=== PATIENT | female | born 1955 | race Caucasian/White ===

== ENCOUNTER 2019-06-23 09:00 | Outpatient (RCR) | payer MEDICARE, MEDICAID, SELFPAY ==
--- NOTE | 2019-05-12 16:32 | PTOPEVAL ---
PHYSICAL THERAPY EVALUATION AND PLAN OF CARE Thank you for referring this patient to [facility]. Cynthia will be seen in PT 2x/week for 6 weeks. Please review, sign, date and return this plan of care JUANJO. I agree with and certify that the following plan of care is medically necessary. Referring Physician Date Evaluation Outpatient Past Medical History Musculoskeletal History Hx Joint Replacement Yes: left EVERTON Evaluation Information Problem Diagnosis left hip pain Onset 06/2018 Subjective Information Cynthia has had a hip replacement Query Text:As Reported By Patient/ 04/2017. ~9 months ago she Family started to notice that the left hip/leg feels like it is sliding. She will feel popping and locking in the joint. Physician states that there could be need for a revision, but recommends PT first for strengthening of hip abductors, adducts, and glute max. Self Report Pain Assessment Left Hip(s) Reported Pain Level 4 Pain Description Aching Pain Frequency Chronic,Continuous Current Pain Intensity 4 Lowest Pain Intensity 3 Greatest Pain Intensity 8 Pain Aggravating Factors Exercise/Activity,Walking, Weight Bearing/Standing Pain Behaviors None Hip Strength Right Hip Flexion Strength 4+ Good + Hip Extension Strength 3+ Fair + Hip Abduction Strength 4 Good Hip Adduction Strength 4+ Good + Hip Medial Rotation Strength 4+ Good + Hip Lateral Rotation Strength 4+ Good + Left Hip Flexion Strength 4 Good Hip Extension Strength 3- Fair - Hip Abduction Strength 4- Good - Hip Adduction Strength 4 Good Hip Medial Rotation Strength 4 Good Hip Lateral Rotation Strength 3- Fair - Knee Strength Bilateral Knee Flexion Strength 5 Normal Knee Extension Strength 5 Normal Palpation Assessment atrophy noted over left gluteus medius and left hip deep external rotators Gait Assessment No Deviations/Normal Stair Climbing Assessment Stair Climbing Assistive Devices None Weight Bearing Status - Left Full Weight Bearing Status - Right Full Maintains Weight Bearing Status Yes Number of Steps Climbed (Steps) 4 Number of Repetitions (Repetitions) 4 Stair Climbing Comments observed left hip drop during
--- NOTE | 2019-05-15 13:49 | OTOPEVAL ---
OCCUPATIONAL THERAPY EVALUATION AND DISCHARGE SUMMARY 05/15/2019 Thank you for referring this patient to [facility]. As described below, no further skilled OT is indicated at this time. The patient's ROM, strength, and pain have remained unchanged since therapy visits from Feb through Mar 2019. Recommend that the patient follow up with orthopedic MD to discuss other treatment options for her chronic pain. Please review, sign, date and return this plan of care JUANJO. I agree with and certify that the following plan of care is medically necessary. Referring Physician Date Attending Provider: Benjamín Hanson MD *OT Outpatient Evaluation Start: 05/15/19 12:35 Freq: Status: Active Protocol: Document 05/15/19 12:35 MANSOOR (Rec: 05/15/19 13:47 MANSOOR [id number]) Therapy Assessment Status Assessment Status Assessment Status Evaluation Outpatient Past Medical History Musculoskeletal History Hx Joint Replacement Yes: left EVERTON Evaluation Information Problem Diagnosis R elbow pain Cause s/p radial head replacement Additional Evaluation Detail Patient fell and sustained a hairline fx of the proximal radius in Mar treated conservatively. In May 2018 she had a follow up xray of the elbow that showed the bone had . In August 2018 she underwent an ORIF of the elbow/radial head and the hardware failed. She underwent a second ORIF October 08, 2018. She attended therapy here at this clinic from Nov-Mar 2019. She returns today due to the chronic pain in the right elbow. 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 She reports that she does her exercises daily from her previous visit and that massage will give her some temporary relief. Previous Treatments Previous Treatments For This Problem Yes - outpatient therapy Pain Assessment Timing of Pain Assessment Timing of Pain Assessment Assessment Pain Scale Pain Scale Used Numeric (1 - 10) Self Report Pain Assessment Right Elbow(s) Reported Pain Level 6 Pain Description Aching,Dull Pain Frequency Chronic
--- NOTE | 2019-05-20 08:01 | PCPTNOTE ---
Patient called & cancelled scheduled appointment this date due to no ride
--- NOTE | 2019-06-23 10:03 | PTOPEVAL ---
PHYSICAL THERAPY DISCHARGE REPORT Thank you for referring this patient to [facility]. Cynthia no longer requires skilled PT. She is compliant and understanding of progressive and resistive HEP. Please review, sign, date and return this plan of care JUANJO. I agree with and certify that the following plan of care is medically necessary. Referring Physician Date Discharge Outpatient Past Medical History Musculoskeletal History Hx Joint Replacement Yes: left EVERTON Evaluation Information Problem Diagnosis left hip pain Subjective Information After 6 weeks of physical Query Text:As Reported By Patient/ therapy with extensive Family strength training with progressive resisance training , Cynthia continues experience the same levels of pain, same sensations of instability in left hip joint. Continues to experience episodes of left hip popping and locking and feelings of the hip shifting in the socket. Previous Treatments Previous Treatments For This Problem Yes - outpatient therapy Pain Assessment Timing of Pain Assessment Timing of Pain Assessment Pre-Treatment Pain Scale Pain Scale Used Numeric (1 - 10) Self Report Pain Assessment Left Hip(s) Reported Pain Level 5 Pain Description Aching Pain Frequency Chronic Pain Score Pain Score 5: Self Report Hip Strength Right Hip Flexion Strength 5 Normal Hip Extension Strength 4 Good Hip Abduction Strength 4+ Good + Hip Adduction Strength 5 Normal Hip Medial Rotation Strength 4+ Good + Hip Lateral Rotation Strength 5 Normal Left Hip Flexion Strength 4+ Good + Hip Extension Strength 3+ Fair + Hip Abduction Strength 4 Good Hip Adduction Strength 4+ Good + Hip Medial Rotation Strength 4 Good Hip Lateral Rotation Strength 4- Good - Knee Strength Bilateral Knee Flexion Strength 5 Normal Knee Extension Strength 5 Normal Clinical Summary Cynthia demonstrates today that she has met or nearly met her functional goals; however, there have been no changes in subjecive symptoms or pain goals. She demonstrates a significant increase in strength of left LE in all planes. Does continue to have a mild strength deficit of
== END 2019-06-23 12:13 | disposition home or self-care (01) ==
LOC: ANHPT 09:00
PROVIDERS: PCP Family Medicine
DX: M25.552 Pain in left hip (principal)
CPT/HCPCS: 97110; 97161; 97165

== ENCOUNTER 2020-09-16 17:02 | Emergency (ER) | payer MEDICARE, MEDICAID, SELFPAY ==
[2020-09-16 17:08] VITALS: BP 142/69; PULSE 100; RESP 16; TEMP 37.5; O2SAT 95
[2020-09-16 17:20] LABS: Glucose Point of Care 168 mg/dl (65-105)
[2020-09-16 17:32] LABS: Hematocrit 38.9 % (37.0-47.0); Hemoglobin 12.9 g/dL (12.0-15.0); Mean Corpuscular HGB Conc 33.2 g/dl (32-36); Mean Corpuscular Hemoglobin 31.8 pg (26-34); Mean Corpuscular Volume 95.8 fl (80-100); Mean Platelet Volume 9.3 fl (7.4-10.4); Platelet Count Result 213 k/mm3 (150-375); Red Blood Count 4.06 M/mm3 (4.2-5.4); Red Cell Distribution Width 13.9 % (11.5-14.5); White Blood Count 8.3 K/mm3 (4.5-10.0)
[2020-09-16 17:42] LABS: Alanine Aminotransferase 30 U/L (4-35); Albumin Level 4.3 g/dL (3.5-5.1); Alkaline Phosphatase 98 U/L (38-126); Anion Gap 9 mmol/L (8-16); Aspartate Amino Transferase 40 U/L (14-36); Bilirubin,Total 0.8 mg/dL (0.2-1.3); Blood Urea Nitrogen 15 mg/dL (7-17); Calcium 9.1 mg/dL (8.4-10.2); Carbon Dioxide 27 mmol/L (22-30); Chloride 101 mmol/L (98-107); Estimated CRCL calculation 91 ml/min; Estimated Glomerular Filt Rate > 60; Glucose 162 mg/dL (65-105); Lipase 119 U/L (23-300); Potassium 3.7 mmol/L (3.4-5.0); Sodium 137 mmol/L (137-145)
[2020-09-16 17:58] LABS: Band Neutrophils Percent 22 % (0-6); Monocytes Absolute Manual 0.33 K/mm3 (0.1-0.90); Monocytes Percent Manual 4 % (3-9); Neutrophils Absolute Manual 7.96 K/mm3 (1.7-7.2); Neutrophils Percent Manual 74 % (46-73); Platelet Estimate Adequate (Adequate); Total Cells Counted 100
--- NOTE | 2020-09-16 18:26 | PC.NURSE ---
PT AMBULATORY TO INTAKE DESK STATES I'VE BEEN WAITING FOR AN HOUR AND NOTHING HAS HAPPENED. PT UPDATED ON WAIT TIMES AND PLAN OF CARE, AMBULATES TO A WHEELCHAIR AND SITS DOWN.
[2020-09-16 19:11] VITALS: BP 137/72; PULSE 105; RESP 18; O2SAT 93
[2020-09-16 19:50] LABS: Add Urine Microscopic? YES; Appearance Urine Clear (Clear); Bilirubin Urine Negative (Negative); Blood Urine Negative (Negative); Color Urine Yellow (Yellow); Glucose Urine UA Negative (Negative); Ketones Urine Trace mg/dL (Negative); Leukocyte Esterase Ur Negative LEU/UL (Negative); Mucus Urine Rare /lpf; Nitrate Urine Negative (Negative); Protein Urine 2+ mg/dL (Negative); RBC Urine 0-2 /hpf (0-2); Specific Grav Ur 1.014 (1.001-1.035); Squamous Epithelial Cell Urine Rare /hpf (Few); Urobilinogen Urine Negative mg/dL (<2.0); WBC Urine 0-3 /hpf
[2020-09-16 20:01] VITALS: BP 131/73; PULSE 98; RESP 20; O2SAT 94
--- NOTE | 2020-09-16 20:20 | ED.ABDPAIN ---
HPI - Abdominal Pain General Chief Complaint: Abdominal Pain Stated Complaint: abd pain, nausea/diahrrea since this am, ams Time Seen by Provider: 09/16/20 19:05 Source: patient Mode of arrival: ambulatory Limitations: clinical condition History of Present Illness HPI narrative: 65-year-old female Somewhat of a reluctant historian but eventually can draw out a history of about a 10-12 of GI upset and lightheadedness Patient says that she went over to a friend's house who had possible food poisoning to help her out and that her word for that was to develop diarrhea today She reports having 4 large loose stools, some abdominal cramping and discomfort which is mild, nausea but no vomiting, also states that she effectively never vomits, the diarrhea is nonbloody, there is no fever She felt a little bit lightheaded earlier as though she might faint but she did not Currently is been 2 or 3 hours since she had any loose stool and in fact had a trip to the bathroom here to urinate without having any diarrhea at all Related Data Home Medications Medication Instructions Recorded Confirmed Vitamin B-12 03/31/19 08/19/20 fexofenadine 180 mg tablet 180 mg PO DAILY 08/18/19 08/19/20 tramadol 50 mg tablet mg PO Q8H PRN tablet 08/18/19 08/19/20 valacyclovir 1 gram tablet 1,000 mg PO Q8H PRN 03/31/20 08/19/20 Allergies Allergy/AdvReac Type Severity Reaction Status Date / Time acetaminophen Allergy Severe Headache Verified 08/19/20 08:25 hydrocodone Allergy Severe Headache Verified 08/19/20 08:25 oxycodone Allergy Severe Headache Verified 08/19/20 08:25 erythromycin base Allergy Intermediate hives\itchi Verified 08/19/20 08:25 ng azithromycin Allergy Unknown Unknown Verified 08/19/20 08:25 Penicillins AdvReac Intermediate Nausea Verified 08/19/20 08:25 diphenhydramine AdvReac Mild Hyperactive Verified 08/19/20 08:25 Penicillins Allergy Unknown Unknown Uncoded 08/19/20 08:25 Review of Systems Review of Systems: All systems reviewed & are unremarkable except as noted in HPI and below Constitutional: Constitutional: Reports no additional constitutional complaints, Denies chills, Reports fatigue, Denies fever(s), Denies headache(s) and Reports weakness Eyes: Eyes: Reports no additional eye complaints and Denies change in vision ENT: Denies headache(s) and Denies sore throat Cardiovascular: Cardiovascular: Denies chest pain and Denies dyspnea Respiratory: Respiratory: Denies cough and Denies dyspnea Gastrointestinal: Gastrointestinal: Reports abdominal pain, Denies bloating, Denies constipation, Reports diarrhea, Reports nausea and Reports vomiting Genitourinary: Genitourinary: Denies urinary frequency, Denies nocturia, Denies dysuria and Denies flank pain Musculoskeletal: Musculoskeletal: Denies deformity, Denies arthralgias, Denies joint swelling and Denies numbness Integumentary/Breasts: Skin/Breast: Denies rash and Denies wounds Neurologic: Denies headache(s), Denies focal weakness and Denies numbness Psychiatric: Psychiatric: Reports no additional psychiatric complaints Endocrine: Endocrine: Reports no additional endocrine complaints Hematologic/Lymphatic: Hematologic/Lymphatic: Reports no additional hematologic/lymphatic complaints Allergic/Immunologic: Allergic/Immunologic: Reports no additional allergic/immunologic complaints PMFSH Past Medical History Medical History Anxiety Arthritis Chronic back pain DJD (degenerative joint disease) Environmental allergies Hyperlipidemia Insomnia Kidney stones Perforation of bladder Post-menopausal UTI (urinary tract infection) Surgical History Surgical History History of back surgery (~2009) L3-5 surgery last surgery in 2009 History of bladder surgery (~05/2016) Sling with revision - 05/2016 History of elbow surgery 08/2018 & 10/2018 - Right elbow, Rep
[2020-09-16 20:31] VITALS: BP 108/59; PULSE 91; RESP 16; O2SAT 96
[2020-09-16] MEDS: LACTATED RINGERS 1,000 ML 999 ML IV CONT (20:35)
[2020-09-16] MEDS: ONDANSETRON INJ 4 MG/2 ML VIAL IV PUSH (20:36)
[2020-09-16] MEDS: LORazepam INJ (*CRX) 2 MG/ML VIAL 1 MG IV PUSH (20:36)
[2020-09-16 21:52] VITALS: BP 116/60; PULSE 107; RESP 22; O2SAT 96
== END 2020-09-16 22:00 | disposition home or self-care (01) ==
PROVIDERS: Family Medicine; Emergency Provider Emergency Medicine; PCP Family Medicine
DX: R19.7 Diarrhea, unspecified (principal); M19.90 Unspecified osteoarthritis, unspecified site; E78.5 Hyperlipidemia, unspecified; F41.9 Anxiety disorder, unspecified; Z87.442 Personal history of urinary calculi; Z87.440 Personal history of urinary (tract) infections; Z96.643 Presence of artificial hip joint, bilateral
CPT/HCPCS: 36415; 80053; 81001; 82948; 83690; 85025; 96361; 96374; 96375; 99284; J2060; J2405; J7120

== ENCOUNTER 2020-12-07 08:15 | Outpatient (RCR) | payer MEDICARE, MEDICAID, SELFPAY ==
--- NOTE | 2020-09-08 13:40 | PTOPEVAL ---
PHYSICAL THERAPY EVALUATION AND PLAN OF CARE Thank you for referring Cynthia Ramos to [facility].? The patient is scheduled to be seen for therapy?1x/week for 4 weeks for treatment of SIJ pain. Please review, sign, date and return this plan of care JUANJO. I agree with and certify that the following plan of care is medically necessary. Referring Physician Date Attending Provider: Topher Finney, Evaluation Outpatient Past Medical History Musculoskeletal History Hx Joint Replacement Yes: left EVERTON, right EVERTON Diagnosis sacroilitis Onset chronic Subjective Information Cynthia is here today with Query Text:As Reported By Patient/ aggravated SIJ pain. In the Family last year she has had a total hip revision on each side and between the two surgeries, her SIJ got aggravated and after the second it has started to ease. She has started to do injections that are maybe helping some, but she is not quite sure yet. Cynthia does have a history of participating in physical therapy for back pain and she continues her exercises regularly. She also gets massages when she is able to afford it. Self Report Pain Assessment Bilateral Sacrum Reported Pain Level 4 Pain Description Aching,Tightness Pain Behaviors None Interventions Used Interventions Used By Clinicians Exercise,Manual Therapy Techniques Pain Relief Interventions Used By Exercise,Heat,Medication Patient Other Alleviating Interventions massage Cervical and Lumbar ROM Lumbar ROM Lumbar Comments generally WFL lumbar ROM; lumbar extension: 0deg Lower Extremity Range of Motion General Lower Extremity Range of Motion Reason Not Measured WFL/Left,WFL/Right Lower Extremity Muscle Strength Testing Hip Strength Right Hip Flexion Strength 3+ Fair + Hip Extension Strength 3 Fair Hip Abduction Strength 3+ Fair + Hip Medial Rotation Strength 4- Good - Hip Lateral Rotation Strength 4- Good - Left Hip Flexion Strength 3 Fair Hip Extension Strength 2+ Poor + Hip Abduction Strength 3+ Fair + Hip Medial Rotation Strength 4- Good - Hip Lateral Rotation Strength 4- Good - Posture Evaluation View Posterior Head/C-Spine Posture Forward Head Thoracic Spin
--- NOTE | 2020-09-08 14:23 | OTOPEVAL ---
OCCUPATIONAL THERAPY INITIAL EVALUATION REPORT 09/08/20 Thank you for referring Cynthia Ramos to [facility].? The patient is scheduled to be seen for therapy? 1x/week for 4 weeks. Please review, sign, date and return this plan of care JUANJO. I agree with and certify that the following plan of care is medically necessary. Referring Physician Date Referring Provider: Samson Reynolds MD *OT Outpatient Evaluation Start: 09/08/20 13:33 Freq: Status: Active Protocol: Document 09/08/20 13:33 MANSOOR (Rec: 09/08/20 14:23 MANSOOR [id number]) Therapy Assessment Status Assessment Status Assessment Status Evaluation Outpatient Past Medical History Past Medical History Source of Past Medical History Recalled from Previous Visit, Confirmed with Patient/Family Neurological History Hx Neurological Disorders No Significant History Cardiovascular History Hx Cardiac Disorders No Significant History Respiratory History Hx Respiratory Disorders No Significant History Gastrointestinal History Hx Gastrointestinal Disorders No Significant History Genitourinary History Hx Kidney Stones Yes Musculoskeletal History Hx Arthritis Yes Hx Back Pain Yes: SI joint pain Hx Fractures Yes: right radial head fx w/ complications and revisions Hx Joint Replacement Yes: left EVERTON 2017 s/p left hip revision 2019; right EVERTON 2020 Hematological History Hx Hematological Disorders No Significant History Endocrine History Hx Endocrine Disorders No Significant History HEENT History Hx HEENT Disorders No Significant History Integumentary History Hx Skin Disorders No Significant History Reproductive History Hx Reproductive Disorders No Significant History Evaluation Information Problem Additional Evaluation Detail Patient sustained right radial head fracture with radial head arthroscopy 10/2018. She was seen at this clinic, but continued to have severe pain and limited functional use of the right UE. She underwent right elbow radial head removal, hardware removal, and anconeus interposition on 08/09/20. She has 1.5 lb. lifting restriction. 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
--- NOTE | 2020-10-06 08:04 | OTOPEVAL ---
OCCUPATIONAL THERAPY RE-EVALUATION AND POC UPDATE 10/06/20 Patient presents today, 8 weeks post-op of right radial head hardware removal and anconeus interposition. She has participated in 3 OT sessions focused on use of modalities and manual tx for pain and soft tissue tightness, instruction in active/passive ROM, as well as progressive strengthening. Patient is progressing well with ROM, pain reduction, and improved functional use. Continued skilled OT indicated 1x/week for an additional 3 weeks for progressive strengthening and HEP progression to facilitate optimal strength and functional use of the right UE. Thank you for referring Cynthia Ramos to [facility].? The patient is scheduled to be seen for therapy? 1x/week for 3 weeks, beginning week of 10/18/20. Please review, sign, date and return this plan of care JUANJO. I agree with and certify that the following plan of care is medically necessary. Referring Physician Date Referring Provider: Samson Reynolds *OT Outpatient Re-Evaluation Start: 09/08/20 13:33 Evaluation Information Problem Additional Evaluation Detail Patient sustained right radial head fracture with radial head arthroscopy 10/2018. She was seen at this clinic, but continued to have severe pain and limited functional use of the right UE. She underwent right elbow radial head removal, hardware removal, and anconeus interposition on 08/09/20. She now has a 10 lb. lifting restriction. She has participated in 3 OT sessions. 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 She states she is able to do these tasks now, but she continues to have pain in the elbow, however she does report that the pain is not as bad as 3 weeks ago. She also notes shoulder and upper back pain due to now overusing these muscles. With household tasks, such as cooking and cleaning, she is now able to use the right hand more for these tasks. She notes limitations with being able to lift heavier items due to weakness. Pain Assessment Timing of Pain Assessment Timing of Pain Assessment Re-assessment Pain
--- NOTE | 2020-10-06 09:19 | PTOPEVAL ---
PHYSICAL THERAPY PROGRESS REPORT AND PLAN OF CARE Thank you for referring Cynthia Ramos to [facility].? The patient is scheduled to be seen for therapy? 1x/week for 3 weeks (over the course of 4 weeks). Please review, sign, date and return this plan of care JUANJO. I agree with and certify that the following plan of care is medically necessary. Referring Physician Date Attending Provider: Topher Finney, Diagnosis sacroilitis Onset chronic Subjective Information Here today for follow-up for Query Text:As Reported By Patient/ lower back pain, sacroilitis. Family Cynthia states that last night was particularly uncomfortable and she used her massage and kept trying to stretch and could not quite find relief. Overall since start of therapy , she reports a definite improvement except for the occasional bad day. Self Report Pain Assessment Bilateral Sacrum Reported Pain Level 4 Pain Description Aching,Tightness Pain Behaviors None Pain Score Pain Score 1,4: Self Report Interventions Used Interventions Used By Clinicians Paraffin Pain Relief Interventions Used By Exercise,Heat,Medication Patient Other Alleviating Interventions massage Cervical and Lumbar ROM Lumbar ROM Lumbar Comments generally WFL lumbar ROM; lumbar extension: 5deg; extensive history of back pain , back surgeries, and scoliosis with severe kyphosis Lower Extremity Range of Motion General Lower Extremity Range of Motion Reason Not Measured WFL/Left,WFL/Right Lower Extremity Muscle Strength Testing Hip Strength Right Hip Flexion Strength 4- Good - Hip Extension Strength 3 Fair Hip Abduction Strength 4- Good - Hip Medial Rotation Strength 4 Good Hip Lateral Rotation Strength 4 Good Left Hip Flexion Strength 4- Good - Hip Extension Strength 2+ Poor + Hip Abduction Strength 4- Good - Hip Medial Rotation Strength 4 Good Hip Lateral Rotation Strength 4 Good General Exercise General Exercises Side Bilateral Exercise Location hips, low back Exercise Type Active,Respiratory Exercise Description -unilateral bridge x15 Query Text:Record Sets, Reps, -clamshells resisted Resistance, and Position -SLR x12 -unilateral lift -single leg stand PT
--- NOTE | 2020-11-02 09:45 | PTOPEVAL ---
PHYSICAL THERAPY PROGRESS REPORT AND PLAN OF CARE UPDATE Thank you for referring Cynthia Ramos to [facility].? The patient is scheduled to be seen for therapy? 2x/week for 6 weeks for treatment and strengthening of left hip s/p 1 year left EVERTON. She will be discharged for care of SIJ at this time. Please review, sign, date and return this plan of care JUANJO. I agree with and certify that the following plan of care is medically necessary. Referring Physician Date Attending Provider: Topher Finney MD Orthopedic Provider: Albert King MD Outpatient Past Medical History Past Medical History Source of Past Medical History Recalled from Previous Visit, Confirmed with Patient/Family Genitourinary History Hx Kidney Stones Yes Musculoskeletal History Hx Arthritis Yes Hx Back Pain Yes: SI joint pain Hx Fractures Yes: right radial head fx w/ complications and revisions Hx Joint Replacement Yes: left EVERTON 2018 s/p left hip revision 2019; right EVERTON 2020 Hematological History Diagnosis sacroilitis Onset chronic Subjective Information Overall her back is feeling Query Text:As Reported By Patient/ better than it was. She Family continues to have bad days where she cannot find relief. She spoke with her doctor about using her inversion table and he gave permission. We received a new order from orthopedic doctor to start physical therapy on left hip s /p 1 year left hip replacment. States that since the surgery she has always had pain in the groin of the hip and in the back of the hip. She states she also has bursitis in the left hip - going to get an injection for the bursitis. Self Report Pain Assessment Bilateral Sacrum Reported Pain Level 3 Pain Description Aching,Tightness Pain Behaviors None Pain Score Pain Score 3: Self Report Interventions Used Interventions Used By Clinicians Exercise,Manual Therapy Techniques Cervical and Lumbar ROM Lumbar ROM Lumbar Comments generally WFL lumbar ROM; lumbar extension: 10deg; extensive history of back pain , back surgeries, and
--- NOTE | 2020-11-02 10:26 | OTOPEVAL ---
OCCUPATIONAL THERAPY RE-EVALUATION REPORT AND DISCHARGE SUMMARY Cynthia presents today for her second OT re-evaluation after an addition 3 weeks of therapy (6 weeks total) for right elbow pain, ROM, and strength. Today her ROM and strength is measuring WNL. She reports no pain and rest and only slight increase in pain (2/10) with heavier ADLs. She is currently independent with all materials. No further skilled OT indicated at this time. Thank you for referring Cynthia Ramos to [facility]Note 3[facility]? Please review, sign, date and return this discharge note JUANJO. I agree with and certify that the following plan of care is medically necessary. Referring Physician Date Referring Provider: Samson Reynolds MD *OT Outpatient Re-Evaluation Additional Evaluation Detail Patient sustained right radial head fracture with radial head arthroscopy 10/2018. She was seen at this clinic, but continued to have severe pain and limited functional use of the right UE. She underwent right elbow radial head removal, hardware removal, and anconeus interposition on 08/09/20. She no longer has a weight lifting restriction and has been released by her ortho MD. Subjective Information Subjectively, patient reports Query Text:As Reported By Patient/ the elbow is so much better . Family She reports that the pain is decreased and she is able to do more with that arm. She knows when to take a rest and when she is able to push activity-posey. 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 She continues to have some proximal muscle pain due to overuse of these muscles, but she states she has been compliant with stretching as much as she can. Pain Assessment Timing of Pain Assessment Timing of Pain Assessment Re-assessment Pain Scale Pain Scale Used Numeric (1 - 10) Self Report Pain Assessment Right Elbow(s) Reported Pain Level 0 Lowest Pain Intensity 0 Greatest Pain Intensity 2 Other Pain Aggravating Factors carrying groceries, mopping the floor Pain Score Pain Score 0: Self Report Upper Extremity Range of
--- NOTE | 2020-12-08 07:38 | PCPTNOTE ---
This treatment is being continued on visit number [id number]. Please see documentation on both accounts to view progress. Completed interventions, outcomes, and problems have been marked as Inactive to facilitate the copying of the Care plan routine for recurring accounts.
== END 2020-12-07 23:59 | disposition home or self-care (01) ==
LOC: ANHPT 08:15
PROVIDERS: PCP Family Medicine; Visit Provider Neurological Surgery
DX: M46.1 Sacroiliitis, not elsewhere classified (principal); S92.151D Displaced avulsion fracture (chip fracture) of right talus, subsequent encounter for fracture with routine healing
CPT/HCPCS: 97018; 97110; 97140; 97163; 97165

== ENCOUNTER 2020-12-22 10:00 | Outpatient (RCR) | payer MEDICARE, MEDICAID, SELFPAY ==
--- NOTE | 2020-12-08 07:36 | PCPTNOTE ---
The treatment documented on this account is a continuation of the treatment documented on visit number [id number]. Please see documentation on both accounts to view progress. The Plan of Care has been transitioned and updated within the new V#. I have addressed and agree with the discipline specific Problems, Interventions, and Goals for the current certification period. Completed interventions, outcomes, and problems have been marked as Inactive to facilitate the copying of the Care plan routine for recurring accounts.
--- NOTE | 2020-12-22 11:16 | PTOPEVAL ---
[facility] THERAPY PROGRESS REPORT Thank you for referring Cynthia Ramos to [facility]– [place].? The patient is scheduled to be seen for therapy? every other week for 4 weeks. Please review, sign, date and return this plan of care JUANJO. I agree with and certify that the following plan of care is medically necessary. Referring Physician Date Referring Provider: Samson Reynolds Diagnosis sacroilitis Onset chronic Subjective Information Did finally get her injection Query Text:As Reported By Patient/ on Sunday but she got an odd Family reaction including a headache and achiness all through the left hip. It was really sore on Sunday and today it feels better yet. Self Report Pain Assessment Left Hip(s) Reported Pain Level 6 Pain Description Aching Pain Frequency Chronic Pain Score Pain Score 6: Self Report Interventions Used Interventions Used By Clinicians Exercise,Joint Mobilization Pain Relief Interventions Used By Exercise,Heat,Medication Patient Other Alleviating Interventions massage Lower Extremity Muscle Strength Testing Hip Strength Right Hip Flexion Strength 4+ Good + Hip Extension Strength 4- Good - Hip Abduction Strength 4- Good - Hip Medial Rotation Strength 4+ Good + Hip Lateral Rotation Strength 4+ Good + Left Hip Flexion Strength 3 Fair Hip Extension Strength 3+ Fair + Hip Abduction Strength 4- Good - Hip Medial Rotation Strength 4 Good Hip Lateral Rotation Strength 4 Good Knee Strength Bilateral Knee Flexion Strength 5 Normal Knee Extension Strength 5 Normal Palpation Assessment Palpation Palpation tight anterior capsule General Exercise General Exercises Side Left,Bilateral Exercise Location hip Exercise Type Active,Resistive,Stretching Exercise Description -sitting hip flexion on Query Text:Record Sets, Reps, elevated table - x10 Resistance, and Position Manual Therapy Side Left Manual Therapy Location Hip Patient Position Supine Manual Therapy Treatment Passive Stretching,Soft Tissue Mobilization Movement Findings Moderate Hypomobility Treatment Comments prone quad stretch Query Text:Include Technique and -prone hip flexor stretch Result of Technique -prone posterior-anteroir hip mobilization to improve anterior capsule length and mo
--- NOTE | 2021-02-01 17:36 | PCPTNOTE ---
PHYSICAL THERAPY DISCHARGE NOTE Attending Provider: Topher Finney, Patient:Cynthia Ramos Date of :1955 Patient has not returned for any further treatments since 12/22/2020, therefore she will be discharged at this time. Patient?s initial visit was on 12/09/2020. The goals have been partially met. Thank you for referring this patient to [facility]. Please review, sign, date and return this discharge summary JUANJO. I have been updated about the patient's current status and I agree with discharge from the above service at this time. Referring Physician Date
== END 2021-02-28 08:44 | disposition home or self-care (01) ==
LOC: ANHPT 10:00
PROVIDERS: PCP Family Medicine; Visit Provider Neurological Surgery
DX: M46.1 Sacroiliitis, not elsewhere classified (principal); S92.151D Displaced avulsion fracture (chip fracture) of right talus, subsequent encounter for fracture with routine healing
CPT/HCPCS: 97110; 97140

== ENCOUNTER 2021-08-14 21:26 | Emergency (ER) | payer MEDICARE, MEDICAID, SELFPAY ==
[2021-08-14 21:44] VITALS: BP 179/104; PULSE 107; RESP 18; TEMP 37.1; O2SAT 97
--- NOTE | 2021-08-14 22:28 | ED.GENADULT ---
HPI - General Adult General Chief complaint: Unspecified Stated complaint: something stuck in throat Time Seen by Provider: 08/14/21 21:49 Source: patient History of Present Illness HPI narrative: 66-year-old female presenting to the emergency department for evaluation of a sore throat. Patient states on when she was taking her nighttime meds she noticed some increased left-sided soreness. Patient states that over the course of the next few days the pain and discomfort persisted. Patient states she is able to handle her secretions. Patient was concerned due to her history of herpes that this could be an exacerbation as the patient started taking her valacyclovir. Patient states the symptoms have persisted. Patient states she is not immunocompromise. Patient also has not vaccinated against COVID. Related Data Home Medications Medication Instructions Recorded Confirmed Vitamin B-12 03/31/19 07/04/21 fexofenadine 180 mg tablet 180 mg PO DAILY 08/18/19 07/04/21 tramadol 50 mg tablet mg PO Q8H PRN tablet 08/18/19 07/04/21 valacyclovir 1 gram tablet 1,000 mg PO Q8H PRN 03/31/20 07/04/21 Allergies Allergy/AdvReac Type Severity Reaction Status Date / Time acetaminophen Allergy Severe Headache Verified 08/14/21 22:41 hydrocodone Allergy Severe Headache Verified 08/14/21 22:41 oxycodone Allergy Severe Headache Verified 08/14/21 22:41 erythromycin base Allergy Intermediate hives\itchi Verified 08/14/21 22:41 ng azithromycin Allergy Unknown Unknown Verified 08/14/21 22:41 Penicillins AdvReac Intermediate Nausea Verified 08/14/21 22:41 diphenhydramine AdvReac Mild Hyperactive Verified 08/14/21 22:41 Penicillins Allergy Unknown Unknown Uncoded 07/04/21 14:31 Review of Systems Review of Systems: CONSTITUTIONAL: Denies fever, chills, or sweats. EYES: Denies visual changes, redness, or discharge. ENT: See HPI CARDIOVASCULAR: Denies chest pain, palpitations, or edema. RESPIRATORY: Denies cough or dyspnea. GASTROINTESTINAL: Denies abdominal pain, nausea, vomiting, or diarrhea. GENITOURINARY: Denies dysuria or hematuria. SKIN: Denies rash or itching. MUSCULOSKELETAL: Denies back pain, joint pain, or myalgia. NEUROLOGIC: Denies headache, numbness, or weakness. [facility] Past Medical History Medical History Anxiety Arthritis Chronic back pain DJD (degenerative joint disease) Environmental allergies Insomnia Kidney stones Perforation of bladder Post-menopausal UTI (urinary tract infection) Surgical History Surgical History History of back surgery (~2009) L3-5 surgery last surgery in 2009 History of bladder surgery (~05/2016) Sling with revision - 05/2016 History of elbow surgery 08/2018 & 10/2018 - Right elbow, Repair Radial head fracture 08/2020 - revision and hardware removal History of left hip replacement 04/2017 - revision History of right hip replacement 04/2020 History of umbilical hernia repair (~1995) History of ureter stent (~2003) Status post dilation and curettage Family History Family History Father Malignant neoplasm of prostate Mother Family history of malignant neoplasm of breast in first degree relative Social History Social History Second hand tobacco smoke exposure: No Alcohol intake: current Substance use: never Substance use type: does not use Additional occupation/education comments: Disability Gender identity (if verbalized by the patient): Female Exam Narrative: APPEARANCE: Well appearing, no pain, no distress, well-nourished. HEAD: normocephalic, atraumatic. EYES: PERRLA/EOMI, conjunctivae clear. NOSE: Normal no drainage EARS:TMS clear with good light reflex. THROAT: White exudate on soft palate and posterior pharyn
[2021-08-14 23:05] VITALS: BP 140/80; PULSE 88; RESP 19; O2SAT 97
[2021-08-14 23:15] LABS: SARS-CoV-2 RNA PCR Negative
== END 2021-08-14 23:05 | disposition home or self-care (01) ==
PROVIDERS: Emergency Provider Emergency Medicine; PCP Family Medicine
DX: B37.0 Candidal stomatitis (principal); Z20.822 Contact with and (suspected) exposure to COVID-19; M19.90 Unspecified osteoarthritis, unspecified site; Z87.442 Personal history of urinary calculi; Z87.440 Personal history of urinary (tract) infections; Z28.39 Other underimmunization status; Z96.643 Presence of artificial hip joint, bilateral
CPT/HCPCS: 87081; 87880; 99283; C9803; U0003; U0005

== ENCOUNTER 2021-09-18 15:25 | Emergency (ER) | payer MEDICARE, MEDICAID, SELFPAY ==
[2021-09-18 15:28] VITALS: BP 140/98; PULSE 97; RESP 16; TEMP 36.3; O2SAT 99
--- NOTE | 2021-09-18 16:04 | ED.GENADULT ---
HPI - General Adult General Chief complaint: Wound/Laceration Stated complaint: FINGER LAC Time Seen by Provider: 09/18/21 15:52 History of Present Illness HPI narrative: Patient is a 66-year-old right-handed female here for evaluation of a laceration sustained to her right third digit about 1 hour prior to arrival. Patient states that she was cutting peppers when the knife accidentally slipped and sliced her distal finger. Patient washed the area out with soap and water, and applied a bandage before presenting to the emergency department. Her tetanus is up-to-date. She is not on blood thinners. Denies numbness or tingling in her hand or difficulty moving her finger. Related Data Home Medications Medication Instructions Recorded Confirmed Vitamin B-12 03/31/19 08/22/21 fexofenadine 180 mg tablet 180 mg PO DAILY 08/18/19 08/22/21 (Katelyn Allergy) tramadol 50 mg tablet mg PO Q8H PRN pain 08/18/19 08/22/21 linaclotide 290 mcg capsule 290 mcg PO DAILY 08/22/21 08/22/21 (Linzess) Allergies Allergy/AdvReac Type Severity Reaction Status Date / Time acetaminophen Allergy Severe Headache Verified 09/18/21 16:00 hydrocodone Allergy Severe Headache Verified 09/18/21 16:00 oxycodone Allergy Severe Headache Verified 09/18/21 16:00 erythromycin base Allergy Intermediate hives\itchi Verified 09/18/21 16:00 ng azithromycin Allergy Unknown Unknown Verified 09/18/21 16:00 Penicillins AdvReac Intermediate Nausea Verified 09/18/21 16:00 diphenhydramine AdvReac Mild Hyperactive Verified 09/18/21 16:00 Penicillins Allergy Unknown Unknown Uncoded 09/18/21 16:00 Review of Systems Review of Systems: Gen: Denies fevers or chills Eyes: Denies eye pain or visual change ENT: Denies congestion Respiratory: Denies shortness of breath or cough CV: Denies chest pain or palpitations GI: Denies abdominal pain nausea, emesis or diarrhea denies burning, urgency, frequency or hematuria Musculoskeletal: Denies back pain or muscle pain Neuro: Denies numbness, tingling, weakness or focal weakness Skin: Reports laceration. Except as documented, all other systems reviewed and negative PMFSH Past Medical History Medical History Anxiety Arthritis Chronic back pain DJD (degenerative joint disease) Elevated fasting blood sugar Environmental allergies Insomnia Irritable bowel syndrome with constipation Kidney stones Perforation of bladder Post-menopausal UTI (urinary tract infection) Surgical History Surgical History History of back surgery (~2009) L3-5 surgery last surgery in 2009 History of bladder surgery (~05/2016) Sling with revision - 05/2016 History of elbow surgery 08/2018 & 10/2018 - Right elbow, Repair Radial head fracture 08/2020 - revision and hardware removal History of left hip replacement 04/2017 - revision History of right hip replacement 04/2020 History of umbilical hernia repair (~1995) History of ureter stent (~2003) Status post dilation and curettage Family History Family History Father Malignant neoplasm of prostate Mother Family history of malignant neoplasm of breast in first degree relative Social History Social History Smoking status: Never smoker Second hand tobacco smoke exposure: No Alcohol intake: current Substance use: never Substance use type: does not use Additional occupation/education comments: Disability Gender identity (if verbalized by the patient): Female Exam Narrative: Gen: Alert, oriented, no acute distress Eyes: EOMI, no icterus Pulm: Respirations even and unlabored, symmetric thorax expansion, no audible stridor or visible cyanosis CV: Regular rate per telemetry GI: No distension, no voluntary/involuntary guarding
== END 2021-09-18 16:45 | disposition home or self-care (01) ==
PROVIDERS: Emergency Provider Emergency Medicine; PCP Family Medicine
DX: S61.212A Laceration without foreign body of right middle finger without damage to nail, initial encounter (principal); M19.90 Unspecified osteoarthritis, unspecified site; K58.1 Irritable bowel syndrome with constipation; Z87.442 Personal history of urinary calculi; Z87.440 Personal history of urinary (tract) infections; Z96.642 Presence of left artificial hip joint; W26.0XXA Contact with knife, initial encounter; Y93.G1 Activity, food preparation and clean up
CPT/HCPCS: 12001; 99282

== ENCOUNTER 2021-09-19 19:23 | Emergency (ER) | payer MEDICARE, MEDICAID, SELFPAY ==
[2021-09-19 19:24] VITALS: BP 145/89; PULSE 100; RESP 18; TEMP 37.1; O2SAT 100
--- NOTE | 2021-09-19 19:49 | ED.UPPEXIN ---
HPI - Extremity Injury (Upper) General Chief Complaint: Recheck/Abnormal Lab/Rx Stated Complaint: Right middle finger suture check seen yesterday Time Seen by Provider: 09/19/21 19:34 History of Present Illness HPI narrative: Pt cut middle finger with kn radha while cutting vegetables yesterday. Pt had 2 sutures placed here. Pt says finger is bruised and swollen and she just wants it rechecked. Related Data Home Medications Medication Instructions Recorded Confirmed Vitamin B-12 03/31/19 08/22/21 fexofenadine 180 mg tablet 180 mg PO DAILY 08/18/19 08/22/21 (Katelyn Allergy) tramadol 50 mg tablet mg PO Q8H PRN pain 08/18/19 08/22/21 linaclotide 290 mcg capsule 290 mcg PO DAILY 08/22/21 08/22/21 (Linzess) Allergies Allergy/AdvReac Type Severity Reaction Status Date / Time acetaminophen Allergy Severe Headache Verified 09/18/21 16:00 hydrocodone Allergy Severe Headache Verified 09/18/21 16:00 oxycodone Allergy Severe Headache Verified 09/18/21 16:00 erythromycin base Allergy Intermediate hives\itchi Verified 09/18/21 16:00 ng azithromycin Allergy Unknown Unknown Verified 09/18/21 16:00 Penicillins AdvReac Intermediate Nausea Verified 09/18/21 16:00 diphenhydramine AdvReac Mild Hyperactive Verified 09/18/21 16:00 Penicillins Allergy Unknown Unknown Uncoded 09/18/21 16:00 Review of Systems Review of Systems: All systems reviewed & are unremarkable except as noted in HPI and below PMFSH Past Medical History Medical History Anxiety Arthritis Chronic back pain DJD (degenerative joint disease) Elevated fasting blood sugar Environmental allergies Insomnia Irritable bowel syndrome with constipation Kidney stones Perforation of bladder Post-menopausal UTI (urinary tract infection) Surgical History Surgical History History of back surgery (~2009) L3-5 surgery last surgery in 2009 History of bladder surgery (~05/2016) Sling with revision - 05/2016 History of elbow surgery 08/2018 & 10/2018 - Right elbow, Repair Radial head fracture 08/2020 - revision and hardware removal History of left hip replacement 04/2017 - revision History of right hip replacement 04/2020 History of umbilical hernia repair (~1995) History of ureter stent (~2003) Status post dilation and curettage Family History Family History Father Malignant neoplasm of prostate Mother Family history of malignant neoplasm of breast in first degree relative Social History Social History Smoking status: Never smoker Second hand tobacco smoke exposure: No Alcohol intake: current Substance use: never Substance use type: does not use Additional occupation/education comments: Disability Gender identity (if verbalized by the patient): Female Exam Const: General: healthy appearing Nutritional Appearance: well nourished Orientation/consciousness: patient oriented x3 Limitations: no limitations Skin: Other: some swelling and bruising distal to well healing laceration with 2 sutures Neuro: General: patient oriented x3, moves all extremities and no focal motor deficits Extrem: Other: some swelling and bruising no obvious infection full ROM of finger Psych: Mental Status: mental status grossly normal Affect: normal affect Attitude: cooperative Course Vital Signs Vital signs: Vital Signs Temperature 98.8 F 09/19/21 19:24 Pulse Rate 100 09/19/21 19:24 Respiratory Rate 18 09/19/21 19:24 Blood Pressure 145/89 H 09/19/21 19:24 Pulse Oximetry 100 09/19/21 19:24 Temperature 98.8 F 09/19/21 19:24 Pulse Rate 100 09/19/21 19:24 Respiratory Rate 18 09/19/21 19:24 Blood Pressure 145/89 H 09/19/21 19:24 Pulse Oximetry 100 09/19/21 19:24 Disc
== END 2021-09-19 20:01 | disposition home or self-care (01) ==
LOC: ANHED 19:58
PROVIDERS: Emergency Provider Emergency Medicine; PCP Family Medicine
DX: S61.212D Laceration without foreign body of right middle finger without damage to nail, subsequent encounter (principal); W26.0XXD Contact with knife, subsequent encounter
CPT/HCPCS: 99283

== ENCOUNTER 2021-11-21 09:58 | Outpatient (CLI) | payer MEDICARE, MEDICAID, SELFPAY ==
--- NOTE | ~2021-11-21 | XR_ITS ---
XR abdomen/kub 1V 11/21/2021 10:23 Indication: Constipation. Colonic transit study. Procedure: KUB Comparison: 05/15/2016 Findings: There are 24 O-rings counted in the abdomen. There are changes of fusion of the lumbosacral spine. There are bilateral hip arthroplasties. There is moderate colonic fecal loading. Nonobstructi ve bowel gas pattern. Impression: 1: Nonobstructive bowel gas pattern with moderate colonic fecal loading. Reviewed, dictated and finalized at location B. Impression: 1: Nonobstructive bowel gas pattern with moderate colonic fecal loading.
== END 2021-11-21 09:59 | disposition home or self-care (01) ==
PROVIDERS: PCP Family Medicine; Visit Provider Internal Medicine Gastroenterology
DX: K59.09 Other constipation (principal)
CPT/HCPCS: 74018

== ENCOUNTER 2021-11-23 08:03 | Outpatient (CLI) | payer MEDICARE, MEDICAID, SELFPAY ==
--- NOTE | ~2021-11-23 | XR_ITS ---
EXAMINATION: XR abdomen/kub 1V INDICATION: Constipation, Sitzmarks study TECHNIQUE: Supine views of the abdomen were obtained on 2 radiographs. COMPARISON: 11/21/2021 FINDINGS: There are 22 Sitzmarks identified in the proximal colon. A large volume of colonic stool is present. The bowel gas pattern is normal. There are surgical changes in the lumbar spine. Changes o f bilateral hip arthroplasty are also noted. There is mild elevation of the right hemidiaphragm. The visualized lung bases are clear. IMPRESSION: 1. Large volume of colonic stool with 22 Sitzmarks identified in the proximal colon. Reviewed, dictated and finalized at location A. IMPRESSION: 1. Large volume of colonic stool with 22 Sitzmarks identified in the proximal c olon.
== END 2021-11-23 08:04 | disposition home or self-care (01) ==
LOC: ANHIMG 08:06
PROVIDERS: PCP Family Medicine; Visit Provider Internal Medicine Gastroenterology
DX: K59.09 Other constipation (principal)
CPT/HCPCS: 74018

== ENCOUNTER 2021-11-25 07:59 | Outpatient (CLI) | payer MEDICARE, MEDICAID, SELFPAY ==
--- NOTE | ~2021-11-25 | XR_ITS ---
EXAMINATION: XR abdomen/kub 1V INDICATION: Constipation TECHNIQUE: Supine view of the abdomen is obtained. COMPARISON: 11/23/2021 FINDINGS: There are 24 Sitzmarks identified in the colon. 12 appear to project in the ascending and t ransverse colon. The remainder project in the pelvis either in the cecum or rectum. A large volume of colonic stool is present. The bowel gas pattern is normal. Surgical changes are noted in the lumbar spine and hips. IMPRESSION: 1. Constipation with 24 Sitzmarks identified in the colon. Reviewed, dictated and finalized at location A.
== END 2021-11-25 08:00 | disposition home or self-care (01) ==
PROVIDERS: PCP Family Medicine; Visit Provider Internal Medicine Gastroenterology
DX: K59.09 Other constipation (principal)
CPT/HCPCS: 74018

== ENCOUNTER 2021-11-27 09:10 | Outpatient (CLI) | payer MEDICARE, MEDICAID, SELFPAY ==
--- NOTE | ~2021-11-27 | XR_ITS ---
EXAM: XR abdomen/kub 1V DATE: 11/27/2021 09:31 HISTORY: constipation, SITZ MARKER STUDY . COMPARISON: 11/25/2021. FINDINGS: Clear lung bases. Normal bowel gas pattern. No organomegaly. 24 Sitzmarks are present, pro jecting over the expected location of the colon. Incompletely evaluated lumbar fusion and bilateral h ip hardware. IMPRESSION: 24 Sitzmarks markers persist within the colon. Reviewed, dictated and finalized at location K.
== END 2021-11-27 09:11 | disposition home or self-care (01) ==
PROVIDERS: PCP Family Medicine; Visit Provider Internal Medicine Gastroenterology
DX: K59.09 Other constipation (principal)
CPT/HCPCS: 74018

== ENCOUNTER 2022-07-31 19:23 | Outpatient (NON) | payer MEDICARE, MEDICAID, SELFPAY | END 2022-07-31 19:24 | disposition home or self-care (01) | LOC: ANHLAB 19:23 | PROVIDERS: PCP Family Medicine; Visit Provider Nurse Practitioner | DX: R30.0 Dysuria (principal) | CPT/HCPCS: 87077; 87086; 87186 ==

== ENCOUNTER 2022-09-15 07:47 | Outpatient (CLI) | payer MEDICARE, MEDICAID, SELFPAY ==
--- NOTE | ~2022-09-15 | MM_ITS ---
EXAMINATION: MM screening felicia BI w moon HISTORY: Screening TECHNIQUE: Craniocaudal and mediolateral oblique 3-D tomosynthesis images were obtained and synthetic 2-D images were generated. CAD analysis was submitted and interpreted. COMPARISON: 09/24/2014 BREAST PARENCHYMAL COMPOSITION: Breast composed of scattered areas of fibroglandular density FINDINGS: There is no evidence of suspicious mass, calcification, or architectural distortion to sugg est malignancy in either breast. There has been no suspicious interval change. IMPRESSION: 1. No mammographic evidence of malignancy. 2. Recommend routine screening mammography in one year. BI-RADS Category 1: Negative Reviewed, dictated and finalized at location A.
--- NOTE | ~2022-09-15 | DEXA_ITS ---
Bone Density Report Name: ALEJANDRA AYALA Age: 67 Sex: Female Ethnicity: White Date of : 1955 Indication: postmenopausal; screening for osteoporosis; height loss; prior fracture; Referring Provider: BEATA CONTEH Study: Bone densitometry was performed. Exam Date: September 15, 2022 Accession number: [id number] Bone Density: Region BMD T-score Z-score Classification AP Spine(L1, L2) 1.086 1.0 2.7 Normal World Health Organization criteria for BMD impression classify patients as: Normal (T-score at or above -1.0), Osteopenia (T-score between -1.0 and -2.5), or Osteoporosis (T-score at or below -2.5). Clinical Information Provided by Patient: Has had a low trauma fracture Patient maximum height was 69 Menopause Age: 53 Drinks caffeinated beverages Onset of menses at age 15 Number of children 2 Impression: The patient has normal bone mass. The patient has risk factors, including: previous fracture. Discussion: LOW RISK OF FRACTURE; BONE DENSITY IS WELL ABOVE THE MINIMUM DESIRABLE LEVEL AND ABOVE AVERAGE FOR AGE AND SEX AT ALL SKELETAL SITES TESTED. This person's bone density is above expected limits for age and sex. This is rarely clinically significant, but should be pursued if there are significant musculoskeletal complaints. The patient should follow a healthful lifestyle (good nutrition with adequate calcium and vitamin D, and appropriate weight-bearing exercise). Follow-Up: Consider repeating this study in 5 years or sooner if there is some new clinical indication. Reported by: JHOAN on 09/15/2022 8:19:00 AM. Reviewed, dictated and finalized at location AJazzmine CONNELL
== END 2022-09-15 07:48 | disposition home or self-care (01) ==
LOC: ANHIMG 07:50
PROVIDERS: PCP Family Medicine; Visit Provider Nurse Practitioner
DX: Z12.31 Encounter for screening mammogram for malignant neoplasm of breast (principal); Z78.0 Asymptomatic menopausal state
CPT/HCPCS: 77063; 77067; 77080

== ENCOUNTER 2023-01-22 08:45 | Outpatient (CLI) | payer MEDICARE, MEDICAID, SELFPAY ==
[2023-01-22 18:53] LABS: Eosinophils Absolute Auto 0.1 K/mm3 (0-0.3); Eosinophils Percent Auto 3.2 % (0-4.4); Hematocrit 41.1 % (37.0-47.0); Hemoglobin 13.1 g/dL (12.0-15.0); Immature Granulocyte Absolute 0.01 K/mm3 (0.00-0.031); Immature Granulocyte Percent A 0.2 % (0-0.5); Lymphocytes Absolute Auto 1.47 K/mm3 (0.9-3.2); Lymphocytes Percent Auto 35.9 % (18.3-44.2); Mean Corpuscular HGB Conc 31.9 g/dl (32-36); Mean Corpuscular Hemoglobin 31.9 pg (26-34); Mean Platelet Volume 9.9 fl (7.4-10.4); Monocytes Absolute Auto 0.4 K/mm3 (0.1-0.6); Monocytes Percent Auto 10.3 % (2.6-8.5); Neutrophils Percent Auto 49.4 % (45.5-73.1); Platelet Count Result 268 k/mm3 (150-375); Red Blood Count 4.11 M/mm3 (4.2-5.4); White Blood Count 4.1 K/mm3 (4.5-10.0)
[2023-01-22 20:02] LABS: Vitamin D 25 Hydroxy 67.7 ng/mL
[2023-01-22 20:05] LABS: Alanine Aminotransferase 31 U/L (6-35); Albumin Level 4.2 g/dL (3.5-5.1); Alkaline Phosphatase 80 U/L (38-126); Anion Gap 6 mmol/L (8-16); Aspartate Amino Transferase 41 U/L (14-36); Bilirubin,Total 0.6 mg/dL (0.2-1.3); Blood Urea Nitrogen 11 mg/dL (7-17); Calcium 9.3 mg/dL (8.4-10.2); Carbon Dioxide 32 mmol/L (22-30); Chloride 102 mmol/L (98-107); Cholesterol 180 mg/dL (0-200); Estimated Glomerular Filt Rate > 60; Glucose 91 mg/dL (65-110); HDL Direct 52 mg/dL; Potassium 3.9 mmol/L (3.4-5.0); Sodium 140 mmol/L (137-145); Triglycerides 132 mg/dL (<150)
[2023-01-22 20:16] LABS: LDL Cholesterol Direct 74 mg/dL
== END 2023-01-22 08:46 | disposition home or self-care (01) ==
LOC: ANHGOSHLAB 08:47
PROVIDERS: PCP Family Medicine; Visit Provider Nurse Practitioner Family
DX: E78.5 Hyperlipidemia, unspecified (principal); E55.9 Vitamin D deficiency, unspecified
CPT/HCPCS: 36415; 80053; 80061; 82306; 85025

== ENCOUNTER → 2023-02-07 14:17 | Outpatient (CLI) | payer MEDICARE, MEDICAID, SELFPAY ==
--- NOTE | ~2023-02-07 | MR_ITS ---
EXAMINATION: MR lumbar spine wo/w con DATE: 02/07/2023 15:12 INDICATION: Lumbar radicular pain with low back and left hip pain TECHNIQUE: Magnetic resonance imaging (MRI) of the lumbar spine was performed without and with 13 mL Multihance intravenous contrast. Sequences included sagittal T2-weighted FSE, sagittal T2-weighted FS FSE, and sagittal and axial T1-weighted FSE. Postcontrast sequences included axial T2-weighted FSE, sagittal T1-weighted FSE, and axial and sagittal T1-weighted FS FSE. COMPARISON: 10/06/2016 FINDINGS: Transitional bilaterally sacralized L5 segment with rudimentary L5-S1 disc space. 30 degrees the thor acolumbar levoscoliosis centered at L1. 3 mm retrolisthesis L1 on L2. L2-L5 laminectomies. L2-L5 post erior spinal fusion with bilateral vertical sarah and pedicle screw fixation. There is also L2-L5 anter ior spinal fusion with interbody bone graft cages at each level. Chronic mild likely physiologic ante rior wedging at T11 and T12 and mild right anterior vertebral body height loss at L1. Normal marrow signal. Moderate to severe right-sided predominant disc height loss with degenerative endplate change s at T11-T12, T12-L1 and L1-L2. Moderate disc height loss at T9-T10 and T10-T11. The conus medullaris terminates at L1. There is normal signal in the caudal spinal cord. Mild to moderate lower lumbar pr edominant fatty atrophy of paraspinal musculature. Paravertebral soft tissues are otherwise unremarka ble. No abnormally enhancing lesions identified although evaluation is limited by poor fat saturation secondary to the metallic spinal fusion instrumentation. The following disc levels are specifically discussed: T11-T12: Disc is mildly bulging. There is moderate bilateral facet osteoarthritis. There is mild left and moderate right neural foraminal stenosis. There is mild central canal stenosis. T12-L1: Disc is bulging. There is mild to moderate left and moderate right facet joint osteoarthritis . There is mild left and moderate right neural foraminal stenosis. There is mild central canal stenos is. L1-L2: Disc is bulging. Prominent right posterior L1 inferior endplate osteophyte. There is mild to m oderate left and severe right facet joint osteoarthritis. There is moderate left and severe right zita ral foraminal stenosis. There is mild central canal stenosis. L2-L3: Disc space is fused. There is also posterior spinal fusion. There is moderate right neural for aminal stenosis. Posterior decompression with no central canal stenosis. L3-L4: Disc space is fused. Bilateral posterior spinal fusion. There is moderate right neural foramin al stenosis. There is posterior decompression with no central canal stenosis. L4-L5: Disc space is fused. Bilateral posterior spinal fusion. There is mild bilateral neural foramin al stenosis. There is posterior decompression with no central canal stenosis. L5-S1: Rudimentary disc space. There is mild bilateral facet joint osteoarthritis. There is no neural foraminal stenosis. There is no central canal stenosis. IMPRESSION: 1. 30 degrees thoracolumbar levoscoliosis and 3 mm retrolisthesis L1 on L2. 2. severe spondylosis and L2-L5 combined instrumented anterior and posterior spinal fusion. Reviewed, dictated and finalized at location A. IMPRESSION: 1. 30 degrees thoracolumbar levoscoliosis and 3 mm retrolisthesis L1 on L2. 2. severe spondylosis and L2-L5 combined instrumented anterior and posterior sp inal fusion.
== END ==
PROVIDERS: PCP Nurse Practitioner Family; Visit Provider Nurse Practitioner Family
DX: M47.26 Other spondylosis with radiculopathy, lumbar region (principal); Z98.1 Arthrodesis status
CPT/HCPCS: 72158; A9577

== ENCOUNTER 2023-09-17 08:17 | Outpatient (CLI) | payer MEDICARE, MEDICAID, SELFPAY ==
[2023-09-17 14:57] LABS: Eosinophils Absolute Auto 0.2 K/mm3 (0-0.3); Eosinophils Percent Auto 4.5 % (0-4.4); Hematocrit 38.3 % (37.0-47.0); Hemoglobin 12.3 g/dL (12.0-15.0); Immature Granulocyte Absolute 0.01 K/mm3 (0.00-0.031); Immature Granulocyte Percent A 0.3 % (0-0.5); Lymphocytes Absolute Auto 1.28 K/mm3 (0.9-3.2); Lymphocytes Percent Auto 32.2 % (18.3-44.2); Mean Corpuscular HGB Conc 32.1 g/dl (32-36); Mean Corpuscular Hemoglobin 31.9 pg (26-34); Mean Corpuscular Volume 99.5 fl (80-100); Mean Platelet Volume 9.9 fl (7.4-10.4); Monocytes Absolute Auto 0.4 K/mm3 (0.1-0.6); Monocytes Percent Auto 9.8 % (2.6-8.5); Neutrophils Absolute Auto 2.1 K/mm3 (1.3-6.7); Neutrophils Percent Auto 52.2 % (45.5-73.1); Platelet Count Result 247 k/mm3 (150-375); Red Blood Count 3.85 M/mm3 (4.2-5.4); Red Cell Distribution Width 13.2 % (11.5-14.5)
[2023-09-17 16:17] LABS: Vitamin D 25 Hydroxy 89.3 ng/mL
[2023-09-17 16:30] LABS: Rheumatoid Factor < 12.0 IU/ML (<12)
[2023-09-17 17:05] LABS: Alanine Aminotransferase 22 U/L (6-35); Albumin Level 4.2 g/dL (3.5-5.1); Alkaline Phosphatase 92 U/L (38-126); Anion Gap 3 mmol/L (4-12); Aspartate Amino Transferase 52 U/L (14-36); Bilirubin,Total 0.5 mg/dL (0.2-1.3); Blood Urea Nitrogen 12 mg/dL (7-17); Calcium 9.1 mg/dL (8.4-10.2); Carbon Dioxide 28 mmol/L (22-30); Chloride 107 mmol/L (98-107); Cholesterol 158 mg/dL (0-200); Estimated Glomerular Filt Rate > 60; Glucose 90 mg/dL (65-110); HDL Direct 51 mg/dL; Potassium 4.1 mmol/L (3.4-5.0); Sodium 138 mmol/L (137-145); Triglycerides 146 mg/dL (<150)
[2023-09-17 17:16] LABS: LDL Cholesterol Direct 69 mg/dL
[2023-09-17 17:36] LABS: Thyroid Stimulating Hormone 0.455 uIU/mL (0.465-4.680)
[2023-09-17 19:45] LABS: Hemoglobin A1C 5.6 % (<5.7)
[2023-09-18 13:48] LABS: Anti Cyclic Citrullinated Pept <16 UNITS
== END 2023-09-17 08:18 | disposition home or self-care (01) ==
LOC: ANHGOSHLAB 08:19
PROVIDERS: PCP Nurse Practitioner Family; Visit Provider Nurse Practitioner Family
DX: G62.9 Polyneuropathy, unspecified (principal); E78.5 Hyperlipidemia, unspecified; R73.03 Prediabetes; D72.819 Decreased white blood cell count, unspecified; M19.90 Unspecified osteoarthritis, unspecified site; N32.81 Overactive bladder; E55.9 Vitamin D deficiency, unspecified; G89.29 Other chronic pain; M25.50 Pain in unspecified joint; M54.2 Cervicalgia; M54.9 Dorsalgia, unspecified; R53.83 Other fatigue; Z13.29 Encounter for screening for other suspected endocrine disorder
CPT/HCPCS: 36415; 80053; 80061; 82306; 83036; 84443; 85025; 86038; 86039; 86200; 86430

== ENCOUNTER 2024-01-02 10:00 | Outpatient (CLI) | payer MEDICARE, MEDICAID, SELFPAY ==
--- NOTE | 2024-01-02 12:00 | NEURO_ITS ---
Impression: # Complains of numbness of lower extremities. History of multiple spine surgeries. # Normal Nerve Conduction Study. # Needle/EMG exam with neurogenic changes in muscles suggestive of higher involvement. # Clinical correlation recommended. Nerve Conduction Studies Anti Sensory Summary Table Stim Site NR Peak (ms) P-T Amp (?V) Site1 Site2 Delta-P (ms) Dist (cm) Aidan (m/s) Left Sup Fibular Anti Sensory (Ant Lat Mall) 14 cm 3.8 8.9 14 cm Ant Lat Mall 3.8 16.0 42 Right Sup Fibular Anti Sensory (Ant Lat Mall) 14 cm 3.1 18.0 14 cm Ant Lat Mall 3.1 16.0 52 Left Sural Anti Sensory (Lat Mall) Calf 3.3 3.9 Calf Lat Mall 3.3 16.0 48 Right Sural Anti Sensory (Lat Mall) Calf 4.0 2.2 Calf Lat Mall 4.0 16.0 40 Motor Summary Table Stim Site NR Onset (ms) O-P Amp (mV) Site1 Site2 Delta-0 (ms) Dist (cm) Aidan (m/s) Left Peroneal Motor (Vastus Med) Ankle 5.2 2.7 Popit Ankle 10.4 47.0 45 Popit 15.6 1.7 B Fib Ankle 8.2 0.0 B Fib 13.4 2.2 Right Peroneal Motor (Vastus Med) Ankle 5.3 0.9 Popit Ankle 10.1 44.0 44 Popit 15.4 0.7 B Fib Ankle 8.4 0.0 B Fib 13.7 0.7 Left Tibial Motor (Abd Shay Brev) Ankle 5.0 4.7 Knee Ankle 9.0 45.0 50 Knee 14.0 4.4 Right Tibial Motor (Abd Shay Brev) Ankle 5.5 3.2 Knee Ankle 10.3 45.0 44 Knee 15.8 2.4 F Wave Studies NR F-Lat (ms) L-R F-Lat (ms) Left Peroneal (Mrkrs) (EDB) 60.94 0.35 Right Peroneal (Mrkrs) (EDB) 61.29 0.35 Left Tibial (Mrkrs) (Abd Hallucis) 61.07 0.01 Right Tibial (Mrkrs) (Abd Hallucis) 61.06 0.01 EMG Side Muscle Nerve Root Ins Act Fibs Amp Dur Recrt Comment Right AntTibialis Dp Br Fibular L4-5 Nml Nml Nml >12ms +1 Right Gastroc Tibial S1-2 Nml Nml Nml >12ms +1 Right Fibularis Long Sup Br Fibular L5-S1 Nml Nml Nml >12ms +1 Right Flex Dig Long Tibial L5-S2 Nml Nml Nml >12ms +1 Right Ext Dig Brev Dp Br Fibular L5, S1 Nml Nml Nml >12ms +1 Right QuadratusFem QuadFemoris L4-5, S1 Nml Nml Nml >12ms +1 Left AntTibialis Dp Br Fibular L4-5 Nml Nml Nml >12ms +1 Left Gastroc Tibial S1-2 Nml Nml Nml >12ms +1 Left Fibularis Long Sup Br Fibular L5-S1 Nml Nml Nml >12ms +1 Left Flex Dig Long Tibial L5-S2 Nml Nml Nml >12ms +1 Left Ext Dig Brev Dp Br Fibular L5, S1 Nml Nml Nml >12ms +1 Left QuadratusFem QuadFemoris L4-5, S1 Nml Nml Nml >12ms +1 MTDD
== END 2024-01-02 10:01 | disposition home or self-care (01) ==
LOC: ANHNEURO 10:02
PROVIDERS: PCP Family Medicine; Visit Provider Nurse Practitioner Family
DX: G89.29 Other chronic pain (principal); M79.2 Neuralgia and neuritis, unspecified; R20.0 Anesthesia of skin; R20.2 Paresthesia of skin
CPT/HCPCS: 95886; 95910

== ENCOUNTER 2024-01-18 08:13 | Outpatient (CLI) | payer MEDICARE, MEDICAID, SELFPAY ==
--- NOTE | ~2024-01-18 | CT_ITS ---
CLINICAL INDICATION: Severe lower back pain and bilateral SI joint pain COMPARISON: reference is made to an MRI examination of the lumbar spine dated 02/07/2023. There. TECHNIQUE: Computed tomography (CT) of the pelvis was performed following the administration of intra venous contrast. The dose-length product was 474.17 mGy-cm. FINDINGS/OBSERVATIONS: Bones: Fixation hardware within the visualized portion of the lower lumbar spine. Evidence of prior hardware revision within the sacrum at the level of S1. Periarticular osteopenia within the sacrum with significant degenerative disease within the bilateral sacroiliac joint spaces, with subchondral cyst formation, sclerosis, and vacuum phenomena. Bilateral total hip arthroplasty precludes adequate evaluation of the soft tissues of the deep pelvis . Multiple loops of decompressed primarily fluid-filled bowel within the pelvis. The bladder is only minimally distended, but otherwise unremarkable. The uterus is either atrophic or surgically absent. Surrounding superficial soft tissues of the pelvis are unremarkable. No rim-enhancing fluid collections. IMPRESSION: Significant degenerative disease within the bilateral sacroiliac joint spaces with fixation hardware within the lumbosacral spine and bilateral hips (as detailed above) Reviewed, dictated and finalized at location A. IMPRESSION: Significant degenerative disease within the bilateral sacroiliac joint spaces w ith fixation hardware within the lumbosacral spine and bilateral hips (as detai led above)
[2024-01-18 08:38] LABS: Estimated Glomerular Filt Rate > 60
== END 2024-01-18 08:14 | disposition home or self-care (01) ==
PROVIDERS: PCP Neurological Surgery; Visit Provider Nurse Practitioner Family
DX: M53.3 Sacrococcygeal disorders, not elsewhere classified (principal); M51.369 Other intervertebral disc degeneration, lumbar region without mention of lumbar back pain or lower extremity pain
CPT/HCPCS: 72193; Q9967

== ENCOUNTER 2024-01-30 10:48 | Outpatient (CLI) | payer MEDICARE, MEDICAID, SELFPAY ==
--- NOTE | ~2024-01-30 | MR_ITS ---
EXAMINATION: MR sacrum wo/w con DATE: 01/30/2024 12:22 INDICATION: Right hip pain TECHNIQUE: Magnetic resonance imaging (MRI) of the sacrum was performed without and with 10 mL Multih ance intravenous contrast. Sequences included oblique axial and oblique coronal T1-weighted FSE and f luid sensitive FSE STIR, oblique coronal T2-weighted FSE, oblique axial T1-weighted FS FSE, sagittal PD-weighted FSE and fluid sensitive FSE STIR. Post contrast oblique axial and oblique coronal T1-weig hted FS FSE were also obtained. COMPARISON: CT pelvis dated 01/18/2024 and 07/13/2016 FINDINGS: There is been interval progression 2017 in moderate to severe bilateral sacroiliac osteoarthritis clinton racterized by nonuniform joint space narrowing and small marginal osteophytes. There are associated T 2 hyperintense subarticular edema-like and cystlike changes along both sides of the bilateral joint s paces which are new since 2017 with sclerotic margins to the cystlike change evident on the more rece nt CT imaging. There is some associated marrow enhancement associated with the subarticular edema-lik e signal change at both sacroiliac joints. Assessment for enhancement in much of the pelvis is howeve r limited due to failure of fat saturation resulting from metallic magnetic field artifact related to bilateral total hip arthroplasties and instrumentation for the lumbar anterior and posterior spinal fusion which is described on separate lumbar spine MR also from 01/30/2024. Visualized bone marrow si gnals otherwise unremarkable with no fracture or pathologic marrow replacing process. Visualized port ion of the bladder, uterus, bowels and adnexa are unremarkable. IMPRESSION: 1. Moderate to severe osteoarthritis at the bilateral sacroiliac joints which has progressed since 17. Reviewed, dictated and finalized at location A. IMPRESSION: 1. Moderate to severe osteoarthritis at the bilateral sacroiliac joints which h as progressed since 2016.
--- NOTE | ~2024-01-30 | MR_ITS ---
EXAMINATION: MR lumbar spine wo/w con DATE: 01/30/2024 12:31 INDICATION: Right hip pain TECHNIQUE: Magnetic resonance imaging (MRI) of the lumbar spine was performed without and with 10 mL Multihance intravenous contrast. Sequences included sagittal T2-weighted FSE, sagittal T2-weighted FS FSE, and sagittal and axial T1-weighted FSE. Postcontrast sequences included axial T2-weighted FSE, sagittal T1-weighted FSE, and axial and sagittal T1-weighted FS FSE. COMPARISON: 02/07/2023 FINDINGS: Approximately 35 degrees thoracolumbar levoscoliosis on the behavioral health technician localizer image. Transitional sacra lized L5 segment with rudimentary L5-S1 disc space. 3 mm retrolisthesis L1 on L2. Posterior lumbar de compression with L2-L5 laminectomies. L2-L5 posterior spinal fusion with bilateral vertical sarah and p edicle screw fixation. There is also L2-L5 anterior spinal fusion with interbody bone graft cages at each level. Chronic mild right anterior vertebral body height loss at T11, T12 and L1. Severe disc he ight loss with fibrovascular degenerative endplate changes at T11-T12, T12-L1 and L1-L2. Moderate dis c height loss at T9-T10 and T10-T11. Marrow signal is otherwise unremarkable. The conus medullaris te rminates at L1. There is normal signal in the caudal spinal cord. Again seen is mild to moderate lowe r lumbar predominant fatty atrophy of the paraspinal musculature. No abnormally enhancing lesions raya ntified although again evaluation is limited by poor fat saturation resulting from the vertical sarah a nd pedicle screws. The following disc levels are specifically discussed: T11-T12: Disc is bulging. There is moderate bilateral facet osteoarthritis. There is mild left and mo derate right neural foraminal stenosis. There is mild central canal stenosis. T12-L1: Disc is bulging. There is moderate right and mild to moderate left facet joint osteoarthritis . There is mild left and moderate right neural foraminal stenosis. There is mild central canal stenos is. L1-L2: Disc is bulging and prominent left posterior L1 inferior endplate osteophyte. There is moderat e left and severe right facet joint osteoarthritis. There is moderate left and severe right neural fo raminal stenosis. There is mild central canal stenosis. L2-L3: Disc space is fused. There is also posterior decompression and posterior spinal fusion. There is moderate right neural foraminal stenosis although assessment is limited by magnetic field artifact associated with the pedicle screws. There is no central canal stenosis. L3-L4: Disc space is fused. There is also posterior decompression and posterior spinal fusion. There is moderate bilateral neural foraminal stenosis although assessment is limited by magnetic field calli fact associated with the pedicle screws. There is no central canal stenosis. L4-L5: Disc space is fused. There is also posterior decompression and posterior spinal fusion. There is mild to moderate bilateral neural foraminal stenosis although assessment is limited by magnetic fi eld artifact associated with the pedicle screws. There is no central canal stenosis. L5-S1: Rudimentary disc space with does not extend beyond the endplate margins. There is mild right a nd moderate left facet joint osteoarthritis. There is no neural foraminal stenosis. There is no centr al canal stenosis. IMPRESSION: 1. 35 degrees thoracolumbar levoscoliosis and unchanged 3 mm retrolisthesis L1 on L2. 2. No significant change in severe spondylosis with L2-L5 combined instrumented anterior and posterio r spinal fusion and posterior decompression with L2-L5 laminectomies. Reviewed, dictated and finalized at location A. IMPRESSION: 1. 35 degrees thoracolumbar levoscoliosis and unchanged 3 mm retrolisthesis L1 on L2. 2. No significant change in severe spondylosis with L2-L5 combined instrumented anterior and posterior spinal fusion and posterior decompression with L2-L5 la minectomies.
== END 2024-01-30 10:49 | disposition home or self-care (01) ==
LOC: MICIMG 10:49
PROVIDERS: PCP Neurological Surgery
DX: M16.11 Unilateral primary osteoarthritis, right hip (principal); M53.3 Sacrococcygeal disorders, not elsewhere classified; Z98.1 Arthrodesis status
CPT/HCPCS: 72158; 72197; A9577

== ENCOUNTER 2024-01-30 10:51 | Outpatient (CLI) | payer MEDICARE, MEDICAID, SELFPAY ==
--- NOTE | ~2024-01-30 | XR_ITS ---
EXAMINATION: XR hip BI 2V w AP pelvis DATE: 01/30/2024 12:36 INDICATION: Hip pain. TECHNIQUE: An anteroposterior view of the pelvis and 2 views of each hip were obtained. COMPARISON: Abdomen radiographs 11/27/2021, CT pelvis 01/18/2024 FINDINGS: There is lumbar levoscoliosis. There are anterior and posterior fusion procedures in lumbar spine. There is a total right hip arthroplasty in near-anatomic alignment. There is a total left hip arthroplasty in near-anatomic alignment. There is a chronic transverse fracture of left acetabulum. There is chronic 2 mm lucency adjacent to the acetabular cup adjacent to the distal fracture fragment , consistent with loosening. No acute fracture. IMPRESSION: 1. 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 2. Total right hip arthroplasty in near-anatomic alignment. Reviewed, dictated and finalized at location A. IMPRESSION: 1. 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 2. Total right hip arthroplasty in near-anatomic alignment.
== END 2024-01-30 10:52 | disposition home or self-care (01) ==
LOC: MICIMG 10:52
PROVIDERS: PCP Neurological Surgery; Visit Provider Nurse Practitioner Family
DX: S32.452 Displaced transverse fracture of left acetabulum (principal); X58.XXXD Exposure to other specified factors, subsequent encounter
CPT/HCPCS: 73521

== ENCOUNTER 2024-05-10 09:39 | Emergency (ER) | payer MEDICARE, MEDICAID, SELFPAY ==
[2024-05-10 09:48] VITALS: BP 137/88; PULSE 106; RESP 16; TEMP 36.8; O2SAT 100
--- NOTE | 2024-05-10 10:12 | ED_ITS ---
HPI - URI/Sore Throat General Chief Complaint: Upper Respiratory Infection Stated Complaint: Ear Pain/Sinus Pain Time Seen by Provider: 05/10/24 09:55 Source: patient Mode of arrival: ambulatory Limitations: no limitations History of Present Illness HPI Narrative: Pat alejo is a 68-year-old female patient presenting to the clinic today with complaints of left ear pain and sinus congestion. She reports symptoms of have been going on for the past couple weeks but got worse yesterday. Feels as though there is a hot sensation to the left side of her throat around her eustachian tube. Feels a lot of crackling in her left ear. Denies any fevers, chills, or body aches. History of chronic sinusitis. MD elicited complaint: nasal congestion and sinus pain Related Data Home Medications ?Medication ?Instructions ?Recorded ?Confirmed ?Last Taken ?Type Vitamin B-12 03/31/19 04/07/24 Unknown History fexofenadine 180 mg tablet 180 mg PO DAILY 08/18/19 04/07/24 Unknown History (Katelyn Allergy) tramadol 50 mg tablet mg PO Q6H PRN pain 02/25/24 04/07/24 Unknown History Allergies Allergy/AdvReac Type Severity Reaction Status Date / Time acetaminophen Allergy Severe Headache Verified 04/07/24 14:29 hydrocodone Allergy Severe Headache Verified 04/07/24 14:29 oxycodone Allergy Severe Headache Verified 04/07/24 14:29 erythromycin base Allergy Intermediate hives\itchi Verified 04/07/24 14:29 ng azithromycin Allergy Unknown Unknown Verified 04/07/24 14:29 Penicillins AdvReac Intermediate Nausea Verified 05/10/24 10:01 prednisone AdvReac Intermediate Anxiety Verified 05/10/24 10:10 diphenhydramine AdvReac Mild Hyperactive Verified 04/07/24 14:29 Review of Systems Review of Systems: Pertinent positives per HPI. Patient denies any fever, chills, rash, headache, visual changes, dizziness, cough, shortness of breath, chest pain, palpitations, nausea, vomiting, diarrhea, constipation, abdominal pain, or any urinary issues. [facility] Past Medical History Medical History Peripheral neuropathy Numbness and tingling Left leg numbness Chronic neuropathic pain Anemia Fatigue Chronic UTI Irritable bowel syndrome with constipation Environmental allergies Anxiety Insomnia History of shingles Chronic back pain DJD (degenerative joint disease) Arthritis Perforation of bladder Kidney stones Post-menopausal Surgical History Surgical History Hx of bilateral hip replacements Lt: 2017, 2019, Rt: 2020 History of right hip replacement 04/2020 History of elbow surgery 08/2018 & 10/2018 - Right elbow, Repair Radial head fracture 08/2020 - revision and hardware removal History of left hip replacement 04/2017 - revision History of ureter stent (~2003) History of back surgery (~2009) L3-5 surgery last surgery in 2009 History of bladder surgery (~05/2016) Sling with revision - 05/2016 Status post dilation and curettage History of umbilical hernia repair (~1995) Family History Family History Father Malignant neoplasm of prostate Mother Family history of malignant neoplasm of breast in first degree relative Social History Social History Smoking status: Never smoker Second hand tobacco smoke exposure: No Alcohol intake: current Substance use: never Substance use type: does not use Current Housing: Decline to Answer Concerned About Future Housing: Decline to Answer Difficulty Paying Gas/Electric Bills: Decline to Answer Difficulty Paying for Meds: Decline to Answer Currently Unemployed: Decline to Answer Education: Decline to Answer Difficulty w/ Childcare or Family Care: Decline to Answer Living arrangements: alone Occupation/Education: other Additional occupation/education comments: Disability Gender identity (if verbalized by the patient): Female Agree to blood products: Yes Comments At the time of my signature, I reviewed and agree with the nursing past medical, surgical, social, and family history. There is no relevant family history pertinent to the patient complaint. Exam Narrative: General: Well-developed, well nourished, in no apparent distress Head: Normocephalic, atraumatic Eyes: Pupils equally round and reactive to light bilaterally, EOM intact, sclera and conjunctive clear, no discharge, lids normal Ears: Right TMs intact and clear, left TM intact, mild bulging, ear canals clear, no drainage, grossly hearing normal. Nose: Nares patent, yellow discharge, moderate inflammation, maxillary sinus tenderness. Mouth: Oral pharynx without lesions or masses, good dentition, MMM. Neck: Supple, trachea midline, no enlargement of anterior or posterior cervical nodes, no thyroid masses or goiter palpable. Cardio: Regular rate and rhythm, s1 and s2 normal, no murmur appreciated. Resp: Clear to auscultation bilaterally, no rhonchi, rales, wheezing or rubs Course Course Emergency Course: Portions of this record may have been created with voice recognition software. Level of Care: Express Care Visit Vital Signs Vital signs: Vital Signs Temperature 36.8 C 05/10/24 09:48 Pulse Rate 106 H 05/10/24 09:48 Respiratory Rate 16 05/10/24 09:48 Blood Pressure 137/88 05/10/24 09:48 Pulse Oximetry 100 05/10/24 09:48 Temperature 36.8 C 05/10/24 09:48 Pulse Rate 106 H 05/10/24 09:48 Respiratory Rate 16 05/10/24 09:48 Blood Pressure 137/88 05/10/24 09:48 Pulse Oximetry 100 05/10/24 09:48 Vital signs reviewed MDM - URI/Sore Throat MDM Narrative Medical decision making narrative: At the time of visit patient is resting comfortably on the exam table. Patient appears to be nontoxic. Plan: I suspect patient has sinusitis and left eustachian tube dysfunction. Prescription for doxycycline was sent to the pharmacy. Supportive measures were discussed with the patient and they voiced understanding discharge instructions and agrees to treatment plan. Return precautions reviewed Differential Diagnosis Differential diagnosis: Likely upper respiratory infection, otitis media, sinusitis, viral infection, bronchitis, influenza, pharyngitis and other (COVID) Discharge Plan Discharge Clinical Impression: Acute dysfunction of left eustachian tube Sinusitis Qualifiers: Sinusitis location: maxillary Chronicity: acute Recurrence: non-recurrent Qualified Code(s): J01.00 - Acute maxillary sinusitis, unspecified Patient Disposition: Home, Self-Care Condition: Stable Instructions: Antibiotic Form, Sinusitis (ED) Additional Instructions: Take prescription medications only as prescribed-doxycycline Increase fluids and stay well hydrated Tylenol/motrin for pain/fever Flonase and OTC antihistamines as directed Vicks vapor rub to open sinuses Sinus rinses for congestion Cepacol spray, cough drops, throat lozenges, warm tea with honey/lemon, gargle salt water to soothe throat BRAT diet for diarrhea Clear liquids x 24 hours then advance as tolerated for nausea/vomiting Go to the ED if you develop a worsening in your condition- high fever not controlled by Tylenol or Motrin, dehydration, weakness, lethargy, shortness of breath, or chest pain. Follow up with your PCP in 3-5 days if symptoms persist. Patient Language: Palauan Prescriptions: New doxycycline monohydrate 100 mg tablet 100 mg PO BID 10 Days Qty: 20 0RF No Action fexofenadine [Katelyn Allergy] 180 mg tablet 180 mg PO DAILY omeprazole magnesium [Acid Customer Solutions Coordinator (omeprazole)] 20 mg capsule,delayed release(DR/EC) 20 mg PO DAILY Qty: 90 2RF tramadol 50 mg tablet PO Q6H PRN (Reason: pain) valacyclovir 1 gram tablet 1,000 mg PO Q8H PRN (Reason: shingles outbreak) Qty: 30 0RF Motegrity 2 mg tablet 2 mg PO DAILY Qty: 30 3RF amitriptyline 25 mg tablet 25 mg PO QHS Qty: 90 1RF Vitamin B-12 simvastatin 20 mg tablet 20 mg PO QHS Qty: 90 1RF solifenacin 5 mg tablet 5 mg PO DAILY Qty: 90 1RF meloxicam 15 mg tablet 15 mg PO DAILY Qty: 90 2RF gabapentin 300 mg capsule 300 mg PO TID Qty: 270 1RF cyclobenzaprine 5 mg tablet See Rx Instructions .ROUTE .COMPLEX Qty: 90 1RF Dose Instruction: TAKE 1 TABLET BY MOUTH EVERY 8 HOURS Rx Instructions: TAKE 1 TABLET BY MOUTH EVERY 8 HOURS misoprostol 200 mcg tablet See Rx Instructions .ROUTE .COMPLEX Qty: 270 0RF Dose Instruction: TAKE 1 TABLET BY MOUTH THREE TIMES DAILY Rx Instructions: TAKE 1 TABLET BY MOUTH THREE TIMES DAILY Follow-up/Referrals: Chani Bynum MD [Primary Care Provider] - Time of Disposition: 10:13 Quality NIHSS Nursing Documentation ED NIHSS nursing documentation: reviewed/agree
== END 2024-05-10 10:16 | disposition home or self-care (01) ==
PROVIDERS: Emergency Provider Nurse Practitioner Family; PCP Family Medicine
DX: H69.92 Unspecified Eustachian tube disorder, left ear (principal); J01.00 Acute maxillary sinusitis, unspecified; G62.9 Polyneuropathy, unspecified; M19.90 Unspecified osteoarthritis, unspecified site; Z96.643 Presence of artificial hip joint, bilateral
CPT/HCPCS: 99213; G0463

== ENCOUNTER 2024-08-15 08:10 | Outpatient (CLI) | payer MEDICARE, OTHER, SELFPAY ==
--- OUTSIDE RECORDS SUMMARY | 2024-08-15 08:18 | XMS_ITS | Referral Summary ---
Author Organization [facility] [address] Address [address] [place] [address] Care Team Providers Care Shredder Tender Peat Name Role Phone ConnorPalmiraJazzmine CUMULATIVE EFFECTS ANALYST Unavailable Unavailable Frank Bynum MD Primary Care Provider Albert King MD Unavailable [phone] Encounters Date Type Department Care Team Description 07/15/2024 8:45 AM CDT Office Visit [facility] Orthopedics and Sports Medicine [address] [place] [address] Albert King MD Trochanteric bursitis, left hip (Primary Dx) from Last 3 Months Allergies Active Allergy Reactions Criticality Noted Date Comments 2-Octyl Cyanoacrylate Hives Medium 06/13/2021 Surgical glue and steri strips Erythromycin Hives Medium 02/12/2017 Hydrocodone Vomiting Medium 05/22/2017 Gets very ill. Gum Huxwam-Xqtlct-Hftp-Alcoh ol Blisters High 10/04/2018 Look like scott Oxycodone Vomiting Medium 05/22/2017 Very ill. Penicillins Rash,Nausea And Vomiting Medium 02/12/2017 As a child. Does ok with Kelfex Medications simvastatin (ZOCOR) 20 mg tabletIndicatio ns:hyperlipidem ia Take 1 tablet (20 mg total) by mouth nightly 7 Active VESICARE 5 mg tabletIndicatio ns:Increased Urinary Frequency Take 1 tablet (5 mg total) by mouth nightly 7 Active fexofenadine (JULI) 180 mg tablet Take 1 tablet (180 mg total) by mouth daily before breakfast Active LORazepam (ATIVAN) 0.5 mg tablet Take 1 tablet (0.5 mg total) by mouth every 6 (six) hours as needed for anxiety 1 8 Active cyclobenzaprine (FLEXERIL) 5 mg tablet Take 1 tablet (5 mg total) by mouth 3 (three) times a day as needed for muscle spasms 8 Active melatonin 10 mg tabletIndicatio ns:insomnia Take 1 tablet (10 mg total) by mouth nightly Active magnesium gluconate (MAGONATE) 27.5 mg magne- sium (500 mg) tabletIndicatio ns:hypomagnesem ia Take 1 tablet (500 mg total) by mouth nightly Active gabapentin (NEURONTIN) 300 mg capsuleIndicati ons:Neuropathic Pain Take 1 capsule (300 mg total) by mouth nightly Active senna-docusate (PERICOLACE) 8.6-50 mgIndications:c onstipation Take 2 tablets by mouth 2 (two) times a day 60 tablet 2 1 Active Additional Information Patient taking differently:2 tablet oral2 times daily PRN, constipation, Indications: constipation, Reported on 07/15/2024 traMADoL (ULTRAM) 50 mg tablet Take 1 tablet (50 mg total) by mouth every 6 (six) hours as needed for pain 50 tablet 1 Active meloxicam (MOBIC) 15 mg tabletIndicatio ns:Osteoarthrit is Take 1 tablet (15 mg total) by mouth daily before breakfast 1 Active Narcan 4 mg/actuation spray,non-aeros ol 0 Active ascorbic acid (VITAMIN C) 500 mg tablet,chewable Take 1 tablet/chew tab (500 mg total) by mouth nightly Active apple cider vinegar 500 mg tablet Take 500 mg by mouth daily before breakfast Active cyanocobalamin (Vitamin B-12) 1,000 mcg tabletIndicatio ns:Prevention of Vitamin B12 Deficiency Take 1 tablet (1,000 mcg total) by mouth daily before breakfast Active vit C/vit D3/E/zinc/elder borja (AIRBORNE VITS ZINC ELDERBERRY ORAL) Take 1 tablet by mouth nightly Active multivitamin capsuleIndicati ons:Vitamin Deficiency Prevention Take 1 capsule by mouth daily before breakfast [employer] Active oxyCODONE (ROXICODONE) 5 mg immediate release tabletIndicatio ns:Pain TAKE ONE TO TWO TABLETS EVERY 4 TO 6 HOURS PRN PAIN 40 tablet 1 Active Additional Information Patient not taking.Reported on 07/15/2024 ondansetron (ZOFRAN) 4 mg tablet Take 1 tablet (4 mg total) by mouth every 8 (eight) hours as needed for nausea or vomiting 20 tablet 1 Active tapentadoL (NUCYNTA) 50 mg tablet Take one tablet every 4 to 6 hours PRN pain. 30 tablet 1 Active traMADoL (ULTRAM) 50 mg tablet TAKE 1-2 TABLETS EVERY 6 HOURS NEEDED FOR PAIN 40 tablet 1 Active Lacto.acidophil us-Bif.animalis 32 billion cell capsule Take 1 tablet by mouth daily Active lidocaine 2 % solution RINSE AND GARGLE 5 ML BY MOUTH THREE TIMES DAILY NEEDED FOR PAIN 2 Active nystatin 100,000 unit/mL suspension TAKE 5ML BY MOUTH FOUR TIMES DAILY FOR 14 DAYS. RINSE AND RETAIN IN MOUTH FOR LONG POSSIBLE BEFORE SWALLOWING 2 Active omeprazole (PriLOSEC) 20 mg capsule 2 Active valACYclovir (VALTREX) 1 gram tablet 2 Active miSOPROStoL (CYTOTEC) 200 mcg tablet 3 Active amitriptyline (ELAVIL) 25 mg tablet Take 1 tablet (25 mg total) by mouth nightly at bedtime 4 Active Motegrity 2 mg tablet Take 1 tablet (2 mg total) by mouth daily 4 Active Active Problems Problem Noted Date Diagnosed Date Right elbow pain 07/28/2020 Overview (07/28/2020): Added automatically from request for surgery [id number] Closed displaced avulsion fracture of right talu s 05/18/2020 Primary osteoarthritis of right hip 02/02/2020 Overview (02/02/2020): Added automatically from request for surgery [id number] Aftercare following left hip joint replacement bob reeder 11/13/2019 Pain due to total hip replacement 10/20/2019 Overview (10/20/2019): Added automatically from request for surgery [id number] Pain due to hip joint prosthesis, subsequent enc ounter 10/20/2019 Overview (10/29/2019): Added automatically from request for surgery [id number] Status post right elbow joint replacement 2018 Overview (10/04/2018): Added automatically from request for surgery [id number] Closed nondisplaced fracture of neck of radius 0 08/02/2018 Overview (08/02/2018): Added automatically from request for surgery [id number] 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 Monthly or less 07/29/2020 Average Number of Drinks Not on file 021 Q3: How often do you have si x or more drinks on one occasion? Never 07/29/2020 Comments No Sex and Gender Information Value Date Recorded Sex Assigned at Not on file Legal Sex Female 5:11 AM DIESEL ENGINE ASSEMBLER Gender Identity Not on file Sexual Orientation Not on file Last Filed Vital Signs Vital Sign Reading Time Taken Comments Blood Pressure 159/96 07/15/2024 8:53 AM CDT Pulse 90 07/15/2024 8:53 AM CDT Temperature 37.2 C (98.9 F) 04/05/2024 9:06 AM DIESEL ENGINE ASSEMBLER Respiratory Rate 18 04/05/2024 9:06 AM DIESEL ENGINE ASSEMBLER Oxygen Saturation 97% 04/05/2024 9:06 AM DIESEL ENGINE ASSEMBLER Inhaled Oxygen Concentration - - Weight 66.2 kg (146 lb) 07/15/2024 8:53 AM CDT Height 166.4 cm (5' 5.5 ) 07/15/2024 8:53 AM CDT Body Mass Index 23.93 07/15/2024 8:53 AM CDT Plan of Treatment Not on file Medical Devices Implanted Type Area Laborer Plumbing Device Identifier Shelf Expiration Date Model / Serial / Lot 6.5mm Low Profile Hex Screw Implanted:Qty: 1 on 10/31/2019 by Albert King MD at [facility] Screw Left: Hip [employer] [id number] 02/27/2024 [id number] / / [id number] 6.5mm Low Profile Hex Screw Implanted:Qty: 1 on 10/31/2019 by Albert King MD at [facility] Screw Left: Hip [employer] C1713 12/09/2023 [id number] / / [id number] Shell Acetabular [place] Gription Od52 Mm Hip Sector Sterile Latex Free - [id number] Implanted:Qty: 1 on 05/08/2017 by Benjamín Hanson MD at [facility] Left: Hip [employer] 03/08/2027 [id number] / / [id number] Screw Bone [place]eca Gription Tf Dome 4 Point Cut Flute L25 Mm Od6.5 Mm Hip Acetabular Cancellous Self Tap Blunt Tip Hexagonal Head Sterile Revision System - [id number] Implanted:Qty: 1 on 05/08/2017 by Benjamín Hanson MD at [facility] Left: Hip [employer] 02/06/2027 [id number] / / [id number] Liner Acetabular [place] Altrx 10 D +4 Mm Od52 Mm Id36 Mm Hip Sterile Latex Free - [id number] Implanted:Qty: 1 on 05/08/2017 by Benjamín Hanson MD at [facility] Left: Hip [employer] 06/06/2020 [id number] / / [id number] Femoral Stem 12/14 Taper Actis Duofix Hip Prosthesis Cementless Implanted:Qty: 1 on 05/08/2017 by Benjamín Hanson MD at [facility] Left: Hip [employer] 01/06/2027 [id number] / / [id number] Head Femoral Articul/Darrel Biolox Delta Titanium +5 Mm 12/14 Taper Od36 Mm Hip Cementless Sterile Latex Free - [id number] Implanted:Qty: 1 on 05/08/2017 by Benjamín Hanson MD at [facility] Left: Hip [employer] 02/06/2022 [id number] / / [id number] Radial Stem Implanted:Qty: 1 on 10/08/2018 by Benjamín Hanson MD at [facility] Right: Elbow Skeletal Dynamics [facility] C1776 03/28/2022 [id number] / / [id number] Radial Head And Lock Screw Implanted:Qty: 1 on 10/08/2018 by Benjamín Hanson MD at [facility] Right: Elbow Skeletal Dynamics [facility] C1776 11/09/2021 [id number] / / [id number] Trident Ii Titanium Clusterhole Acetabular Shell Implanted:Qty: 1 on 10/31/2019 by Albert King MD at [facility] Left: Hip [employer] C1776 09/15/2023 [id number] / / [id number] [employer] [id number] 46mm Modular Dual Mobility Primary Hip F Liner Acetabular Cocr - [id number] Implanted:Qty: 1 on 10/31/2019 by Albert King MD at [facility] Left: Hip [employer] 06/21/2024 [id number] / / [id number] [employer] 1236-2-852 Adm Mobile Bearing Hip Alevism 46mm 52mm 28mm 8.9mm Hip - [id number] Implanted:Qty: 1 on 10/31/2019 by Albert King MD at [facility] Left: Hip [employer] 08/22/2023 1236-2-852 / / [id number] [employer] [id number] Articul/Darrel 28mm Skirt Hip +15.5mm 12/14 Standard Taper Head Latex Free - [id number] Implanted:Qty: 1 on 10/31/2019 by Albert King MD at [facility] Left: Hip [employer] 09/07/2023 [id number] / / [id number] [employer] [id number] Seneca 56mm Sector Hip Shell Acetabular Gription Sterile Latex Free - [id number] Implanted:Qty: 1 on 04/12/2020 by Albert King MD at [facility] Right: Hip [employer] 12/07/2029 [id number] / / [id number] Dep[employer] [id number] Seneca 56mm 36mm Hip Neutral Liner Acetabular Altrx Sterile Latex Free - [id number] Implanted:Qty: 1 on 04/12/2020 by Albert King MD at [facility] Right: Hip [employer] 12/07/2024 [id number] / / [id number] [employer] [id number] Actis Collar Hip 7 High Offset Stem Femoral - [id number] Implanted:Qty: 1 on 04/12/2020 by Albert King MD at [facility] Right: Hip [employer] 12/07/2029 [id number] / / [id number] [employer] [id number] Articul/Darrel 36mm Cementless Hip +5mm 12/14 Taper Head Femoral Latex Free - [id number] Implanted:Qty: 1 on 04/12/2020 by Albert King MD at [facility] Right: Hip [employer] 02/06/2025 [id number] / / [id number] Arthrex Inc Ar-1934bcf Suturetak Fiberwire 3mm 14.5mm 2 [place] Suture Biocomposite - [id number] Implanted:Qty: 1 on 08/09/2020 by Samson Reynolds MD at [facility] Right: Elbow [employer] 12/08/2023 [id number] / / [id number] Ar[employer] Inc [id number] Suturetak Tigerwire 3mm 14.5mm 2 [place] Suture Fiberwire - [id number] Implanted:Qty: 1 on 08/09/2020 by Samson Reynolds MD at [facility] [place] Right: Elbow [employer] 01/06/2021 [id number] / / [id number] Arthrex Inc Ar-1934bcf Suturetak Fiberwire 3mm 14.5mm 2 [place] Suture Biocomposite - [id number] Implanted:Qty: 1 on 08/09/2020 by Samson Reynolds MD at [facility] Right: Elbow [employer] 12/08/2023 [id number] / / [id number] Explanted Type Area Laborer Plumbing Device Identifier Shelf Expiration Date Model / Serial / Lot Acumed Inc [id number] Slide-Loc 24mm Anatomic Elbow Right Head Radial Sterile - [id number] Implanted:Qty: 1 on 08/21/2018 by Benjamín Hanson MD at [facility] Explanted:Qty: 1 on 10/08/2018 at [facility] [employer] Inc 01/02/2024 [id number] / / [id number] Anatomic Radial Head System Implanted:Qty: 1 on 08/21/2018 by Benjamín Hanson MD at [facility] Explanted:Qty: 1 on 10/08/2018 at [facility] [employer] 05/08/2025 [id number] / / [id number] Procedures Procedure Name Priority Date/Time Associated Diagnosis Comments IA ARTHROCENTESIS ASPIR&/INJ MAJOR JT/BURSA W/O US Routine 07/15/2024 8:45 AM CDT Trochanteric bursitis, left hip from Last 3 Months Results * IA ARTHROCENTESIS ASPIR&/INJ MAJOR JT/BURSA W/O US (07/15/2024 8:45 AM CDT) Narrative Albert King MD - 07/15/2024 8:45 AM CDT Albert King MD 07/15/2024 12:45 PM Greater trochanteric bursa injection Performed by: Albert King MD Authorized by: Albert King MD Greater Trochanteric Bursa Injection: Consent Given by: Patient Site marked: the procedure site was marked Timeout: prior to procedure the correct patient, procedure, and site was verified Verbal consent obtained?: Yes Prior to the start of the procedure, verbal verification by the procedure participant(s) confirmed (as applicable): corect patient idenity; correct site/side marked and visible; agreement on the procedure to be done; correct patient positioning; an accurate procedure consent form, relevant images and results correctly labeled and displayed; any safety precautions based on clinical history and/or medication use have been addressed.: Supporting Documentation: Indications: Pain and therapeutic Procedure Details: Site: Left Greater Trochanteric Bursa Prep: patient was prepped and draped in usual sterile fashion Patient position: Sidelying Needle Size: 22 G Ultrasound guidance: No Approach: Lateral Medications: 80 mg methylPREDNISolone acetate 80 mg/mL; 4 mL lidocaine 20 mg/mL (2 %) Patient tolerance: Patient tolerated the procedure well with no immediate complications us Albret King MD IN CLINIC/BEDSIDE ORDERA BLES Final Result from Last 3 Months Insurance MEDICARE [facility] MEDICARE MEDICARE [facility] Advance Directives For more information, please contact: [phone] * Full Code (Latest Code Status on File) Date Activated Date Inactivated Comments 04/12/2020 9:49 AM 04/12/2020 8:12 PM * Full Code Date Activated Date Inactivated Comments 10/31/2019 2:38 PM 11/01/2019 5:59 PM * Full Code Date Activated Date Inactivated Comments 05/08/2017 4:59 PM 05/10/2017 4:40 PM Healthcare Agents on File Name Relationship Healthcare Agent [facility] Communication Sruthi Ramos Daughter Health Care Agent Edil Ramos Son Second Alternate Health Care Agent Care Teams Shredder Tender Peat Relationship Specialty Start Date End Date Frank Bynum MD PCP - General Family Practice 10/30/17 Palmira Ryan, [facility] Physical Therapist Physical Therapy 05/04/17 Albert King MD Surgeon Orthopedic Surgery 04/12/20
--- OUTSIDE RECORDS SUMMARY | 2024-08-15 08:18 | XMS_ITS | Encounter Summary ---
Author Organization [facility] Healthcare Address [facility] [place] [address] Care Team Providers Care Soil Fertility Extension Specialist Name Role Phone Marcio Dumont DO Primary Care Provider [phone] Palmira Ryan PTA Unavailable Unavailable Frank Bynum MD Primary Care Provider Albert King MD Unavailable [phone] Encounter Details Date Type Department Care Team (Late st Contact Info) Description 05/04/2017 Orders Only [facility] [address] [place] [address] Benjamín Hanson MD [address] [place] [address] [address] JONES [address] [address] Social History Tobacco Use Types Packs/Day Years Used Date Smoking Tobacco: Never Smokeless Tobacco: Never Alcohol Use Standard Drinks/Week Comments Yes 0 (1 standard drink = 0.6 oz pur e alcohol) rare Comments Unknown Sex and Gender Information Value Date Recorded Sex Assigned at Not on file Legal Sex Female 5:11 AM PET CAREGIVER Gender Identity Not on file Sexual Orientation Not on file documented as of this encounter Plan of Treatment Not on file documented as of this encounter Visit Diagnoses Not on filedocumented in this encounter Additional Health Concerns Infection Onset Date Last Indicated Resolved Time COVID: Suspected Comment:Negative 10/29/2019 10/29/2019 10/29/2019 1:56 PM C DT COVID: Suspected 04/05/2024 04/05/2024 04/05/2024 9:04 AM PET CAREGIVER COVID19 04/05/2024 04/05/2024 04/15/2024 3:05 AM PET CAREGIVER documented as of this encounter Care Teams Soil Fertility Extension Specialist Relationship Specialty Start Date End Date Marcio Dumont DO PCP - General Internal Medicine 01/31/17 10/29/17 Frank Bynum MD PCP - General Family Practice 10/30/17 Palmira Ryan, [facility] Physical Therapist Physical Therapy 05/04/17 Albert King MD Surgeon Orthopedic Surgery 04/12/20 documented as of this encounter
--- OUTSIDE RECORDS SUMMARY | 2024-08-15 08:18 | XMS_ITS | Clinical Summary ---
Author Organization [facility] Address [address] [place] [address] Care Team Providers Care Centrifugal Separator Name Role Phone ConnorPalmira Joel LEAN MANUFACTURING COORDINATOR Unavailable Unavailable Frank Bynum MD Primary Care Provider Albert King MD Unavailable [phone] Allergies Active Allergy Reactions Criticality Noted Date Comments 2-Octyl Cyanoacrylate Hives Medium 06/13/2021 Surgical glue and steri strips Erythromycin Hives Medium 02/12/2017 Hydrocodone Vomiting Medium 05/22/2017 Gets very ill. Gum Mixrjr-Pvsidw-Yyez-Alcoh ol Blisters High 10/04/2018 Look like scott [...] (07/28/2020): Added automatically from request for surgery [id number] Closed displaced avulsion fracture of right talu s 05/18/2020 Primary osteoarthritis of right hip 02/02/2020 Overview (02/02/2020): Added automatically from request for surgery [id number] Aftercare following left hip joint replacement bob reeder 11/13/2019 Pain due to total hip replacement 10/20/2019 Overview (10/20/2019): Added automatically from request for surgery [id number] Pain due to hip joint prosthesis, subsequent enc ounter 10/20/2019 Overview (10/29/2019): Added automatically from request for surgery [id number] Status post right elbow joint replacement 2018 Overview (10/04/2018): Added automatically from request for surgery [id number] Closed nondisplaced fracture of neck of radius 0 08/02/2018 Overview (08/02/2018): Added automatically from request for surgery [id number] 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 06/01/2015 Combined forms of age-related cataract 6 Photopsia 05/24/2015 Encounters Date Type Department Care Team Description 07/15/2024 8:45 AM CDT Office Visit [facility] [address] [place] [address] Albert King MD Trochanteric bursitis, left hip (Primary Dx) from Last 3 Months Surgical History Surgery Date Site/Laterality Comments FLUORO GUIDED INJECTION ELBOW RIGHT 09/26/2019 Right TOTAL HIP ARTHROPLASTY 04/09/2020 - 05/09/2020 Right REVISION TOTAL HIP ARTHROPLASTY 10/08/2019 - 11/07/2019 L eft TOTAL HIP ARTHROPLASTY 04/09/2017 - 05/09/2017 Left ORIF RADIAL HEAD / NECK FRACTURE 04/09/2018 - 04/08/2019 Right Fx. LUMBAR FUSION 04/09/2009 - 04/08/2010 CERVICAL DISCECTOMY 04/09/2011 - 04/08/2012 BLADDER SUSPENSION 04/09/2005 - 04/08/2006 BLADDER SUSPENSION 04/09/2005 - 04/08/2006 redo Medical History Medical History Date Comments Hypercholesteremia Migraines PONV (postoperative nausea and vomiting) Motion sickness Kidney stone Insomnia Pain Chronic pain in SI joint sees pain management, Family History Medical History Relation Name Comments Arthritis Other Cancer Other Relation Name Status Comments Other Social History Tobacco Use Types Packs/Day Years [...] on file Legal Sex Female 5:11 AM TARIFF COUNSEL Gender Identity Not on file Sexual Orientation Not on file Obstetrics History Last Filed Vital Signs Vital Sign Reading Time Taken Comments Blood Pressure 159/96 07/15/2024 8:53 AM CDT Pulse 90 07/15/2024 8:53 AM CDT Temperature 37.2 C (98.9 F) 04/05/2024 9:06 AM TARIFF COUNSEL Respiratory Rate 18 04/05/2024 9:06 AM TARIFF COUNSEL Oxygen Saturation 97% 04/05/2024 9:06 AM TARIFF COUNSEL Inhaled Oxygen Concentration - - Weight 66.2 kg (146 lb) 07/15/2024 8:53 AM CDT Height 166.4 cm (5' 5.5 ) 07/15/2024 8:53 AM CDT Body Mass Index 23.93 07/15/2024 8:53 AM CDT Plan of Treatment Health Maintenance Due Date Last Done Comments Breast Cancer Screening-Mammogram 1956 Colon Cancer Screening-Colonoscopy 1955 Depression Screening 1956 Hepatitis C Screening 1956 Osteoporosis Screening-Bone Density Scan 1956 Hepatitis B Screening 1974 Pneumococcal vaccine 65+ (1 of 1 - PCV) 2006 Zoster Vaccine (1 of 2) 2006 Well Visit 65+ 2021 Fall Risk Assessment 08/09/2021 08/09/2020 DTaP/Tdap/Td Vaccine (2 - Td or Tdap) 03/18/202301/2013, 08/07/2003 Covid-19 Vaccine (2 - season) 2023 Influenza Vaccine (Season Ended) 2024 Medical Devices Implanted Type Area Adobe Cq Developer Device Identifier Shelf Expiration Date Model / Serial / Lot 6.5mm Low Profile Hex Screw Implanted:Qty: 1 on 10/31/2019 by Albert King MD at [facility] Screw Left: Hip [employer] C1713 02/27/2024 [id number] / / [id number] 6.5mm Low Profile Hex Screw Implanted:Qty: 1 on 10/31/2019 by Albert King MD at [facility] Screw Left: Hip [employer] C1713 12/09/2023 [id number] / / [id number] Shell Acetabular [place] Gription Od52 Mm Hip Sector Sterile Latex Free - [id number] Implanted:Qty: 1 on 05/08/2017 by Benjamín Hanson MD at [facility] Left: Hip [employer] 03/08/2027 [id number] / / [id number] Screw Bone [place] Gription Tf Dome 4 Point Cut Flute L25 Mm Od6.5 Mm Hip Acetabular Cancellous Self Tap Blunt Tip Hexagonal Head Sterile Revision System - [id number] Implanted:Qty: 1 on 05/08/2017 by Benjamín Hanson MD at [facility] Left: Hip [employer] 02/06/2027 [id number] / / [id number] Liner Acetabular [place] Altrx 10 D +4 Mm Od52 Mm Id36 Mm Hip Sterile Latex Free - [id number] Implanted:Qty: 1 on 05/08/2017 by Benjamín Hanson MD at [facility] Left: Hip [employer] 06/06/2020 [id number] / / [id number] Femoral Stem 12/14 Taper Actis Duofix Hip Prosthesis Cementless Implanted:Qty: 1 on 05/08/2017 by Benjamín Hanson MD at [facility] Left: Hip [employer] 01/06/2027 1010-11-070 / / [id number] Head Femoral Articul/Darrel Biolox Delta Titanium +5 Mm 12/14 Taper Od36 Mm Hip Cementless Sterile Latex Free - [id number] Implanted:Qty: 1 on 05/08/2017 by Benjamín Hanson MD at [facility] Left: Hip [employer] 02/06/2022 [id number] / / [id number] Radial Stem Implanted:Qty: 1 on 10/08/2018 by Benjamín Hanson MD at [facility] Right: Elbow [employer] [facility] C1776 03/28/2022 [id number] / / [id number] Radial Head And Lock Screw Implanted:Qty: 1 on 10/08/2018 by Benjamín Hanson MD at [facility] Right: Elbow [employer] C1776 11/09/2021 [id number]-240 / / [id number] Trident Ii Titanium Clusterhole Acetabular Shell Implanted:Qty: 1 on 10/31/2019 by Albert King MD at [facility] Left: Hip [employer] C1776 09/15/2023 [id number] / / [id number] [employer] [id number] 46mm Modular Dual Mobility Primary Hip F Liner Acetabular Cocr - [id number] Implanted:Qty: 1 on 10/31/2019 by Albert King MD at [facility] Left: Hip [employer] 06/21/2024 [id number] / / [id number] [employer] 1236-2-852 Adm Mobile Bearing Hip Tenriism 46mm 52mm 28mm 8.9mm Hip - [id number] Implanted:Qty: 1 on 10/31/2019 by Albert King MD at [facility] Left: Hip [employer] 08/22/2023 1236-2-852 / / [id number] [employer] [id number] Articul/Darrel 28mm Skirt Hip +15.5mm 12/14 Standard Taper Head Latex Free - [id number] Implanted:Qty: 1 on 10/31/2019 by Albert King MD at [facility] Left: Hip [employer] 09/07/2023 [id number] / / [id number] [employer] [id number] [place] 56mm Sector Hip Shell Acetabular Gription Sterile Latex Free - [id number] Implanted:Qty: 1 on 04/12/2020 by Albert King MD at [facility] Right: Hip [employer] 12/07/2029 [id number] / / [id number] [employer] [id number] [place] 56mm 36mm Hip Neutral Liner Acetabular Altrx Sterile Latex Free - [id number] Implanted:Qty: 1 on 04/12/2020 by Albert King MD at [facility] Right: Hip [employer] 12/07/2024 [id number] / / [id number] [employer] [id number] Actis Collar Hip 7 High Offset Stem Femoral - [id number] Implanted:Qty: 1 on 04/12/2020 by Albert King MD at [facility] Right: Hip [employer] 12/07/2029 [id number] / / [id number] [employer] [id number] Articul/Darrel 36mm Cementless Hip +5mm 12/14 Taper Head Femoral Latex Free - [id number] Implanted:Qty: 1 on 04/12/2020 by Albert King MD at [facility] Right: Hip [employer] 02/06/2025 [id number] / / [id number] Ar[employer]rex Inc Ar-1934bcf Suturetak Fiberwire 3mm 14.5mm 2 [place] Suture Biocomposite - [id number] Implanted:Qty: 1 on 08/09/2020 by Samson Reynolds MD at [facility] Right: Elbow [employer] 12/08/2023 AR-[id number] / / [id number] [employer] Inc [id number] Suturetak Tigerwire 3mm 14.5mm 2 [place] Suture Fiberwire - [id number] Implanted:Qty: 1 on 08/09/2020 by Samson Reynolds MD at [facility] Right: Elbow [employer] 01/06/2021 [id number] / / [id number] Ar[employer] Inc Ar-1934bcf Suturetak Fiberwire 3mm 14.5mm 2 [place] Suture Biocomposite - [id number] Implanted:Qty: 1 on 08/09/2020 by Samson Reynolds MD at [facility] Right: Elbow [employer] 12/08/2023 AR-[id number] / / [id number] Explanted Type Area Adobe Cq Developer Device Identifier Shelf Expiration Date Model / Serial / Lot Acumed Inc [id number] Slide-Loc 24mm Anatomic Elbow Right Head Radial Sterile - [id number] Implanted:Qty: 1 on 08/21/2018 by Benjamín Hanson MD at [facility] Explanted:Qty: 1 on 10/08/2018 at [facility] [employer] Inc 01/02/2024 [id number] / / [id number] Anatomic Radial Head System Implanted:Qty: 1 on 08/21/2018 by Benjamín Hanson MD at [facility] Explanted:Qty: 1 on 10/08/2018 at [facility] [employer] Inc 05/08/2025 [id number] / / [id number] Procedures Procedure Name Priority Date/Time Associated Diagnosis Comments NM ARTHROCENTESIS ASPIR&/INJ MAJOR JT/BURSA W/O US Routine 07/15/2024 8:45 AM CDT Trochanteric bursitis, left hip from Last 3 Months Results * NM ARTHROCENTESIS ASPIR&/INJ MAJOR JT/BURSA W/O US (07/15/2024 [...] the procedure well with no immediate complications Albert King MD IN CLINIC/BEDSIDE ORDERA BLES Final Result from Last 3 Months Insurance MEDICARE [facility] MEDICARE MEDICARE [facility] Advance Directives For more information, please contact: [phone] * Full Code (Latest Code Status on File) Date Activated Date Inactivated Comments 04/12/2020 9:49 AM 04/12/2020 8:12 PM * Full Code Date Activated Date Inactivated Comments 10/31/2019 2:38 PM 11/01/2019 5:59 PM * Full Code Date Activated Date Inactivated Comments 05/08/2017 4:59 PM 05/10/2017 4:40 PM Healthcare Agents on File Name Relationship [facility] Sruthi Ramos Daughter Health Care Agent Edil Ramos Son Second Alternate Health Care Agent Care Teams Centrifugal Separator Relationship Specialty Start Date End Date Frank Bynum MD PCP - General Family Practice 10/30/17 Palmira Ryan, LEAN MANUFACTURING COORDINATOR Physical Therapist Physical Therapy 05/04/17 Albert King MD Surgeon Orthopedic Surgery 04/12/20
--- OUTSIDE RECORDS SUMMARY | 2024-08-15 08:18 | XMS_ITS | Encounter Summary ---
Author Organization [facility] Address [address] [place] [address] Care Team Providers Care Gasoline Tester Name Role Phone Frank Bynum MD Primary Care Provider Encounter Details Date Type Department Care Team (Late st Contact Info) Description 06/13/2021 Prep for Procedure [facility] [place], [place] [id number] Benjamín Kendrick MD [address] [id number] Social History Tobacco Use Types Packs/Day Years Used Date Smoking Tobacco: Never Smokeless Tobacco: Never Alcohol Use Standard Drinks/Week Comments Never 0 (1 standard drink = 0.6 oz pur e alcohol) Comments Unknown Sex and Gender Information Value Date Recorded Sex Assigned at Not on file Legal Sex Female 1:16 PM MINE ADMINISTRATOR SUPERVISOR Gender Identity Not on file Sexual Orientation Not on file COVID-19 Exposure Response Date Recorded In the last 10 days, have yo u been in contact with someone who was confirmed or suspected to have Coronavirus/COVID-19? No / Unsure 06/13/2021 2:56 PM MINE ADMINISTRATOR SUPERVISOR documented as of this encounter Plan of Treatment Not on file documented as of this encounter Visit Diagnoses Diagnosis Heartburn- Primary documented in this encounter Additional Health Concerns Infection Onset Date Last Indicated Resolved Time COVID-19 Rule Out 06/17/2021 06/17/2021 06/17/2021 11:06 AM MINE ADMINISTRATOR SUPERVISOR COVID-19 Rule Out 06/17/2021 06/17/2021 06/17/2021 7:44 PM MINE ADMINISTRATOR SUPERVISOR documented as of this encounter Care Teams Gasoline Tester Relationship Specialty Start Date End Date Frank Bynum MD [address] [place] [address] PCP - General FAMILY PRACTICE 06/20/21 documented as of this encounter
--- OUTSIDE RECORDS SUMMARY | 2024-08-15 08:18 | XMS_ITS | Encounter Summary ---
Author Organization [facility] Address [address] [place] [address] Phone Care Team Providers Care Actuarial Assistant Name Role Phone Marcio Dumont DO Primary Care Provider [phone] Palmira Ryan PTA Unavailable Unavailable Frank Bynum MD Primary Care Provider Albert King MD Unavailable [phone] Encounter Details Date Type Department Care Team (Late st Contact Info) Description 05/04/2017 Orders Only [facility] ProviderYisel MD [address] [address] Social History Tobacco Use Types Packs/Day Years Used Date Smoking Tobacco: Never Smokeless Tobacco: Never Alcohol Use Standard Drinks/Week Comments Yes 0 (1 standard drink = 0.6 oz pur e alcohol) rare Comments Unknown Sex and Gender Information Value Date Recorded Sex Assigned at Not on file Legal Sex Female 5:11 AM VEGETABLE PACKER Gender Identity Not on file Sexual Orientation Not on file documented as of this encounter Plan of Treatment Not on file documented as of this encounter Procedures Procedure Name Priority Date/Time Associated Diagnosis Comments DISCHARGE LABORATORY CUMULATIVE REPORT 05/04/2017 12:00 AM VEGETABLE PACKER documented in this encounter Results * DISCHARGE LABORATORY CUMULATIVE REPORT (05/04/2017 12:00 AM VEGETABLE PACKER) Narrative 05/04/2017 12:00 AM VEGETABLE PACKER Ordered by an unspecified provider. us Historical Provider LAB BLOOD ORDERABLES Ro l Result documented in this encounter Visit Diagnoses Not on filedocumented in this encounter Additional Health Concerns Infection Onset Date Last Indicated Resolved Time COVID: Suspected Comment:Negative 10/29/2019 10/29/2019 10/29/2019 1:56 PM C DT COVID: Suspected 04/05/2024 04/05/2024 04/05/2024 9:04 AM VEGETABLE PACKER COVID19 04/05/2024 04/05/2024 04/15/2024 3:05 AM VEGETABLE PACKER documented as of this encounter Care Teams Actuarial Assistant Relationship Specialty Start Date End Date Marcio Dumont DO PCP - General Internal Medicine 01/31/17 10/29/17 Frank Bynum MD PCP - General Family Practice 10/30/17 Palmira Ryan, [facility] Physical Therapist Physical Therapy 05/04/17 Albert King MD Surgeon Orthopedic Surgery 04/12/20 documented as of this encounter
--- OUTSIDE RECORDS SUMMARY | 2024-08-15 08:18 | XMS_ITS | Clinical Summary ---
Author Organization [facility] Address [address] [place] [address] Care Team Providers Care Weave Room Supervisor Name Role Phone Frank Bynum MD Primary Care Provider Allergies Active Allergy Reactions Criticality Noted Date Comments Erythromycin Hives 06/13/2021 Penicillins Nausea and Vomiting 06/13/2021 Cyanoacrylate Hives 06/13/2021 Surgical glue and steri strips Medications solifenacin 5 MG tablet Take 10 mg by mouth daily. Active Cyanocobalamin (VITAMIN B 12 OR) Take by mouth daily. Active Ascorbic Acid (VITAMIN C) 100 MG tablet Take 100 mg by mouth daily. Active traMADol 50 MG tablet Take 50 mg by mouth every 6 (six) hours as needed for Pain. Active cyclobenzaprine 5 MG tablet Take 5 mg by mouth as needed for Muscle Spasms. Active fexofenadine 180 MG tablet Take 180 mg by mouth daily. Active gabapentin 300 MG capsule Take 300 mg by mouth daily. Active magnesium gluconate tablet Take 500 mg by mouth daily. Active melatonin 1 MG tablet Take 1 mg by mouth nightly as needed. Active meloxicam 15 MG tablet Take 15 mg by mouth daily. Active simvastatin 20 MG tablet Take 20 mg by mouth daily. Active Probiotic Product (PROBIOTIC ADVANCED) Cap Take 1 tablet by mouth daily. Active linaCLOtide 290 MCG capsule Take 290 mcg by mouth daily. Take on empty stomach at least 30 minutes prior to first meal of the day. Swallow whole. Do not open capsule or chew. Active Active Problems No known active problems Social History Tobacco Use Types Packs/Day Years Used Date Smoking Tobacco: Never Smokeless Tobacco: Never Alcohol Use Standard Drinks/Week Comments Never 0 (1 standard drink = 0.6 oz pur e alcohol) Comments Unknown Sex and Gender Information Value Date Recorded Sex Assigned at Not on file Legal Sex Female 1:16 PM INSIDE UPHOLSTERER Gender Identity Not on file Sexual Orientation Not on file Last Filed Vital Signs Vital Sign Reading Time Taken Comments Blood Pressure 132/107 06/20/2021 9:36 AM CDT Pulse 94 06/20/2021 9:36 AM CDT Temperature 36.7 C (98 F) 06/20/2021 9:19 AM CDT Respiratory Rate 18 06/20/2021 9:36 AM CDT Oxygen Saturation 94% 06/20/2021 9:36 AM CDT Inhaled Oxygen Concentration - - Weight 68 kg (150 lb) 06/13/2021 2:55 PM INSIDE UPHOLSTERER Height 170.2 cm (5' 7 ) 06/13/2021 2:55 PM INSIDE UPHOLSTERER Body Mass Index 23.49 06/13/2021 2:55 PM INSIDE UPHOLSTERER Plan of Treatment Health Maintenance Due Date Last Done Comments Hepatitis C 1974 Mammogram Screening 1996 Pneumococcal Vaccine: 50+ Years (1 of 1 - PCV) 2006 Zoster Vaccines (1 of 2) 2006 Annual Medicare Wellness Visit 2021 Dexa Scan (General) 2021 DTaP, Tdap and Td Vaccines ( 2 - Td or Tdap) 03/18/2023 03/18/2013, 08/07/2003 COVID-19 Vaccine ( - 2023-2 5 season) 2023 Colorectal Cancer Screening Colonoscopy (10 Years) 06/21/2031 06/20/2021, 06/20/2021 RSV Immunization or 60+ Years (1 - 1-dose 75+ series) 08/02/2031 Meningococcal B Vaccine Aged Out No l onger eligible based on patient's age to complete this topic Meningococcal Vaccine Aged Out No alexus berto eligible based on patient's age to complete this topic RSV Immunizations Under 20 Months Aged Out No longer eligible b ased on patient's age to complete this topic Procedures Procedure Name Priority Date/Time Associated Diagnosis Comments COLONOSCOPY Routine 06/20/2021 9:37 AM CDT from Last 3 Months or Most Recently Relevant to Health Maintenance Results * Colonoscopy (06/20/2021 9:37 AM CDT) Narrative Procedure Note Benjamín Kendrick MD - 06/20/2021 9:37 AM CDT BENJAMÍN KENDRICK MD, FACG, FACP COLONOSCOPY and EGD 06/20/2021 EGD INDICATION: GERD. POST-OP: Normal. SEDATION: Per Anesthesia With the patient in the left lateral decubitus position, the [id number] endoscope was used to easily intubate the esophagus and advancedto the third duodenum. Careful inspection of the mucosa was made uponinsertion and withdrawal of the endoscope with retroflexion in thestomach. Findings: Esophagus: SC Jx @ 40 cm. The esophagus is normal. No esophagitis,stricture, mass or Shane's. Stomach: Fundus, body and antrum normal. No ulceration, erosion,inflammation, AVM or malignancy. Duodenum: Normal in the bulb, second and third duodenum. COLONOSCOPY INDICATION: Altered bowel habits-constipation. POST-OP: Mild diverticulosis. PREP: Good. With the patient in the left lateral decubitus position, the [id number] colonoscope was introduced into the rectum and advanced easilyto the Terminal Ileum. Careful inspection of the mucosa was made uponinsertion and withdrawal of the endoscope. FINDINGS: Terminal ileum: distal 5 cm normal. Cecum and Rectum includingretroflexion normal. Ascending colon, Transverse colon, Descending colon, Sigmoid colon: milddiverticulosis. No masses, polyps, AVMs or colitis seen. No complications, blood loss orimplants. ASSESSMENT AND PLAN: A. GERD: - Resolved on omeprazole 20 mg po daily; continue - No esophagitis or Shane s B. Altered bowel habits-constipation: - Initial improvement on Linzess 290 daily but now not so much - No improvement on Miralax but not sure how much she was taking - Add Miralax 4 scoops in 32 oz liquid daily to Linzess - Consider CTS and ARM if no improvement - Patient is using step stool without improvement C. Mild diverticulosis: observe. D. Unremarkable colonoscopy: screening colonoscopy in 10 years. Thank you for allowing me to care for your patient. She will follow-upwith me in two months as needed. Benjamín Kendrick M.D. Cc: Dr. Syeda Bynum us Benjamín Kendrick MD GI PROCEDURE ORDERABLES Fin al Result from Last 3 Months or Most Recently Relevant to Health Maintenance Insurance MEDICARE MEDICAID Care Teams Weave Room Supervisor Relationship Specialty Start Date End Date Frank Bynum MD [address] [place] [address] PCP - General FAMILY PRACTICE 06/20/21
[2024-08-15 08:40] LABS: Glucose Point of Care 101 mg/dl (65-105)
[2024-08-15 19:37] LABS: Iron 139 ug/dL (37-170)
[2024-08-15 19:46] LABS: Percent Iron Saturation 46 % (20-50)
[2024-08-15 20:09] LABS: Thyroid Stimulating Hormone Reflex 0.135 uIU/mL (0.465-4.68)
[2024-08-15 20:23] LABS: Basophils Absolute Auto 0.1 K/mm3 (0.0-0.1); Basophils Percent Auto 1.3 % (0.2-1.2); Eosinophils Absolute Auto 0.1 K/mm3 (0-0.3); Eosinophils Percent Auto 3.1 % (0-4.4); Hematocrit 42.3 % (37.0-47.0); Hemoglobin 13.5 g/dL (12.0-15.0); Immature Granulocyte Absolute 0.01 K/mm3 (0.00-0.031); Immature Granulocyte Percent A 0.3 % (0-0.5); Lymphocytes Absolute Auto 1.12 K/mm3 (0.9-3.2); Lymphocytes Percent Auto 29.3 % (18.3-44.2); Mean Corpuscular HGB Conc 31.9 g/dl (32-36); Mean Corpuscular Hemoglobin 31.8 pg (26-34); Mean Corpuscular Volume 99.8 fl (80-100); Mean Platelet Volume 9.7 fl (7.4-10.4); Monocytes Absolute Auto 0.3 K/mm3 (0.1-0.6); Monocytes Percent Auto 7.3 % (2.6-8.5); Neutrophils Absolute Auto 2.2 K/mm3 (1.3-6.7); Neutrophils Percent Auto 58.7 % (45.5-73.1); Platelet Count Result 265 k/mm3 (150-375); Red Blood Count 4.24 M/mm3 (4.2-5.4); Red Cell Distribution Width 13.2 % (11.5-14.5); White Blood Count 3.8 K/mm3 (4.5-10.0)
[2024-08-15 20:30] LABS: Alanine Aminotransferase 32 U/L (6-35); Albumin Level 4.3 g/dL (3.5-5.1); Alkaline Phosphatase 85 U/L (38-126); Anion Gap 7 mmol/L (4-12); Aspartate Amino Transferase 42 U/L (14-36); Bilirubin,Total 0.6 mg/dL (0.2-1.3); Blood Urea Nitrogen 11 mg/dL (7-17); Calcium 9.2 mg/dL (8.4-10.2); Carbon Dioxide 30 mmol/L (22-30); Chloride 104 mmol/L (98-107); Cholesterol 219 mg/dL (0-200); Estimated Glomerular Filt Rate > 60; Glucose 168 mg/dL (65-110); HDL Direct 75 mg/dL; Potassium 3.7 mmol/L (3.4-5.0); Sodium 141 mmol/L (137-145); Triglycerides 103 mg/dL (<150)
[2024-08-15 20:35] LABS: Glucose 2 Hour 99 mg/dL
[2024-08-15 20:36] LABS: Glucose 1 Hour 179 mg/dL
[2024-08-15 20:36] LABS: Glucose Fasting 99 mg/dL
[2024-08-15 20:41] LABS: LDL Cholesterol Direct 81 mg/dL
[2024-08-15 20:55] LABS: Vitamin D 25 Hydroxy 91.1 ng/mL
[2024-08-15 21:18] LABS: Vitamin B12 > 1000.0 pg/mL (239-931)
[2024-08-15 21:24] LABS: Free T4 Free Thyroxine Reflex 1.13 ng/dL (0.78-2.19)
[2024-08-15 22:10] LABS: Total Triiodothyronine (T3) 1.11 NG/ML (0.97-1.69)
[2024-08-18 15:39] LABS: Red Blood Cell Folate 536 ng/mL RBC (>280)
[2024-08-18 18:59] LABS: Immunofixation, Serum Normal pattern.
[2024-08-19 10:33] LABS: Vitamin B6 22.7 ng/mL (2.1-21.7)
[2024-08-19 21:03] LABS: Methylmalonic Acid 132 nmol/L (69-390)
[2024-08-19 21:54] LABS: Vitamin B1 10 nmol/L (8-30)
[2024-08-20 10:34] LABS: Alpha-Tocopherol 16.8 mg/L (5.7-19.9); Beta-Gamma Tocopherol 1.5 mg/L (<4.4)
== END 2024-08-15 08:11 | disposition home or self-care (01) ==
PROVIDERS: Psychiatry & Neurology Neurology; PCP Family Medicine; Visit Provider Nurse Practitioner Family
DX: E78.5 Hyperlipidemia, unspecified (principal); I10 Essential (primary) hypertension; D64.9 Anemia, unspecified; Z13.1 Encounter for screening for diabetes mellitus; G62.9 Polyneuropathy, unspecified; E55.9 Vitamin D deficiency, unspecified
CPT/HCPCS: 36415; 80053; 80061; 82306; 82607; 82728; 82747; 82948; 82951; 83540; 83550; 83921; 84207; 84425; 84439; 84443; 84446; 84480; 85025; 86334

== ENCOUNTER 2025-02-23 08:18 | Outpatient (CLI) | payer MEDICARE, OTHER, MEDICAID, SELFPAY ==
[2025-02-23 13:01] LABS: Hematocrit 38.6 % (37.0-47.0); Hemoglobin 12.4 g/dL (12.0-15.0); Immature Granulocyte Percent A 0.0 % (0-0.5); Lymphocytes Absolute Auto 1.23 K/mm3 (0.9-3.2); Mean Corpuscular HGB Conc 32.1 g/dl (32-36); Mean Corpuscular Hemoglobin 32.2 pg (26-34); Mean Corpuscular Volume 100.3 fl (80-100); Nucleated Red Blood Cells Absolute Auto 0.000 K/mm3 (0.0-0.012); Nucleated Red Blood Cells Perc 0.0 % (0.0-0.2); Platelet Count Result 286 k/mm3 (150-375); Red Blood Count 3.85 M/mm3 (4.2-5.4); White Blood Count 4.1 K/mm3 (4.5-10.0)
[2025-02-23 13:11] LABS: Alanine Aminotransferase 21 U/L (6-35); Albumin Level 3.9 g/dL (3.5-5.1); Alkaline Phosphatase 94 U/L (38-126); Anion Gap 4 mmol/L (4-12); Aspartate Amino Transferase 39 U/L (14-36); Bilirubin,Total 0.7 mg/dL (0.2-1.3); Blood Urea Nitrogen 13 mg/dL (7-17); Calcium 9.0 mg/dL (8.4-10.2); Carbon Dioxide 30 mmol/L (22-30); Chloride 105 mmol/L (98-107); Cholesterol 170 mg/dL (0-200); Estimated Glomerular Filt Rate > 60; Glucose 97 mg/dL (65-110); HDL Direct 55 mg/dL; Potassium 4.0 mmol/L (3.4-5.0); Sodium 139 mmol/L (137-145); Total Protein 6.6 g/dL (6.3-8.2); Triglycerides 112 mg/dL (<150)
[2025-02-23 14:10] LABS: Vitamin B12 > 1000.0 pg/mL (239-931)
== END 2025-02-23 08:19 | disposition home or self-care (01) ==
PROVIDERS: PCP Family Medicine; Visit Provider Nurse Practitioner Family
DX: E78.5 Hyperlipidemia, unspecified (principal); E55.9 Vitamin D deficiency, unspecified; R53.83 Other fatigue
CPT/HCPCS: 36415; 80053; 80061; 82306; 82607; 85025

== ENCOUNTER 2025-03-25 17:07 | Outpatient (CLI) | payer MEDICARE, OTHER, SELFPAY ==
[2025-03-25 17:30] LABS: Add Urine Microscopic? YES; Appearance Urine Clear (Clear); Glucose Urine UA Negative (Negative); Leukocyte Esterase Ur Trace LEU/UL (Negative); Nitrate Urine Negative (Negative); Specific Grav Ur 1.014 (1.001-1.035)
--- OUTSIDE RECORDS SUMMARY | 2025-03-25 18:33 | XMS_ITS | Encounter Summary ---
Author Organization [facility] Healthcare Address [facility] [place] [address] Care Team Providers Care Squadron Worker Name Role Phone Marcio Dumont DO Primary Care Provider [phone] Palmira Ryan MACHINE GRINDER Unavailable Unavailable Frank Bynum MD Primary Care Provider Albert King MD Unavailable [phone] Encounter Details Date Type Department Care Team (Late st Contact Info) Description 05/04/2017 Orders Only [facility] [address] [place] [address] Benjamín Hanson MD [address] [place] [address] [address] [address] Social History Tobacco Use Types Packs/Day Years Used Date Smoking Tobacco: Never Smokeless Tobacco: Never Alcohol Use Standard Drinks/Week Comments Yes 0 (1 standard drink = 0.6 oz pur e alcohol) rare Comments Unknown Sex and Gender Information Value Date Recorded Sex Assigned at Not on file Legal Sex Female 5:11 AM MACHINING MANAGER Gender Identity Not on file Sexual Orientation Not on file documented as of this encounter Plan of Treatment Not on file documented as of this encounter Visit Diagnoses Not on filedocumented in this encounter Additional Health Concerns Infection Onset Date Last Indicated Resolved Time COVID: Suspected Comment:Negative 10/29/2019 10/29/2019 10/29/2019 1:56 PM C DT COVID: Suspected 04/05/2024 04/05/2024 04/05/2024 9:04 AM MACHINING MANAGER COVID19 04/05/2024 04/05/2024 04/15/2024 3:05 AM MACHINING MANAGER documented as of this encounter Care Teams Squadron Worker Relationship Specialty Start Date End Date Marcio Dumont DO PCP - General Internal Medicine 01/31/17 10/29/17 Frank Bynum MD PCP - General Family Practice 10/30/17 Palmira Ryan, [facility] Physical Therapist Physical Therapy 05/04/17 Albert King MD Surgeon Orthopedic Surgery 04/12/20 documented as of this encounter
--- OUTSIDE RECORDS SUMMARY | 2025-03-25 18:33 | XMS_ITS | Encounter Summary ---
Author Organization [facility] Address [address] [place] [address] Phone Care Team Providers Care Enlisted Aircrew/Aerial Observer/Gunner Name Role Phone Marcio Dumont DO Primary Care Provider [phone] Palmira Ryan PTA Unavailable Unavailable Frank Bynum MD Primary Care Provider Albert King MD Unavailable [phone] Encounter Details Date Type Department Care Team (Late st Contact Info) Description 05/04/2017 Orders Only [facility] ProviderYisel MD [address] [place] [id number] Social History Tobacco Use Types Packs/Day Years Used Date Smoking Tobacco: Never Smokeless Tobacco: Never Alcohol Use Standard Drinks/Week Comments Yes 0 (1 standard drink = 0.6 oz pur e alcohol) rare Comments Unknown Sex and Gender Information Value Date Recorded Sex Assigned at Not on file Legal Sex Female 5:11 AM BOTANY PROFESSOR Gender Identity Not on file Sexual Orientation Not on file documented as of this encounter Plan of Treatment Not on file documented as of this encounter Procedures Procedure Name Priority Date/Time Associated Diagnosis Comments DISCHARGE LABORATORY CUMULATIVE REPORT 05/04/2017 12:00 AM BOTANY PROFESSOR documented in this encounter Results * DISCHARGE LABORATORY CUMULATIVE REPORT (05/04/2017 12:00 AM BOTANY PROFESSOR) Narrative 05/04/2017 12:00 AM BOTANY PROFESSOR Ordered by an unspecified provider. Historical Provider LAB BLOOD ORDERABLES Ro l Result documented in this encounter Visit Diagnoses Not on filedocumented in this encounter Additional Health Concerns Infection Onset Date Last Indicated Resolved Time COVID: Suspected Comment:Negative 10/29/2019 10/29/2019 10/29/2019 1:56 PM C DT COVID: Suspected 04/05/2024 04/05/2024 04/05/2024 9:04 AM BOTANY PROFESSOR COVID19 04/05/2024 04/05/2024 04/15/2024 3:05 AM BOTANY PROFESSOR documented as of this encounter Care Teams Enlisted Aircrew/Aerial Observer/Gunner Relationship Specialty Start Date End Date Marcio Dumont DO PCP - General Internal Medicine 01/31/17 10/29/17 Frank Bynum MD PCP - General Family Practice 10/30/17 Palmira Ryan, [facility] Physical Therapist Physical Therapy 05/04/17 Albert King MD Surgeon Orthopedic Surgery 04/12/20 documented as of this encounter
--- OUTSIDE RECORDS SUMMARY | 2025-03-25 18:33 | XMS_ITS | Clinical Summary ---
Author Organization [facility] Address [address] [place] [address] Care Team Providers Care Gold Leaf Laborer Name Role Phone ConnorPalmira Joel SSRS DEVELOPER Unavailable Unavailable Frank Bynum MD Primary Care Provider Albert King MD Unavailable [phone] Allergies Active Allergy Reactions Criticality Noted Date Comments 2-Octyl Cyanoacrylate Hives Medium 06/13/2021 Surgical glue and steri strips Erythromycin Hives Medium 02/12/2017 Hydrocodone Vomiting Medium 05/22/2017 Gets very ill. Gum Jxryaf-Odhkii-Qkri-Alcoh ol Blisters High 10/04/2018 Look like scott [...] (07/28/2020): Added automatically from request for surgery [id number] Closed displaced avulsion fracture of right talu s 05/18/2020 Primary osteoarthritis of right hip 02/02/2020 Overview (02/02/2020): Added automatically from request for surgery [id number] Aftercare following left hip joint replacement bob reeder 11/13/2019 Pain due to total hip replacement 10/20/2019 Overview (10/20/2019): Added automatically from request for surgery [id number] Pain due to hip joint prosthesis, subsequent enc ounter 10/20/2019 Overview (10/29/2019): Added automatically from request for surgery [id number] Status post right elbow joint replacement 2018 Overview (10/04/2018): Added automatically from request for surgery [id number] Closed nondisplaced fracture of neck of radius 0 08/02/2018 Overview (08/02/2018): Added automatically from request for surgery [id number] 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 06/01/2015 Combined forms of age-related cataract 6 Photopsia 05/24/2015 Surgical History Surgery Date Site/Laterality Comments FLUORO [...] on file Legal Sex Female 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 Gender Identity Not on file Sexual Orientation Not on file Last Filed Vital Signs Vital Sign Reading Time Taken Comments Blood Pressure 121/72 11/21/2024 8:45 AM CDT Pulse 101 11/21/2024 8:45 AM CDT Temperature 37.2 C (98.9 F) 04/05/2024 9:06 AM AUTOMATION AND 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 SUPERVISOR Respiratory Rate 18 04/05/2024 9:06 AM AUTOMATION AND CONTROLS SUPERVISOR Oxygen Saturation 97% 04/05/2024 9:06 AM 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 AND 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 Inhaled Oxygen Concentration - - Weight 66.2 kg (146 lb) 07/15/2024 8:53 AM CDT Height 166.4 cm (5' 5.5) 07/15/2024 8:53 AM CDT Body Mass Index [...] Tdap) 03/18/202301/2013, 08/07/2003 Covid-19 Vaccine (2 - 2024- season) 2024 Influenza Vaccine (#1) 2024 Medical Devices Implanted Type Area Multimedia Coordinator Device Identifier Shelf Expiration Date Model / Serial / Lot 6.5mm Low Profile Hex Screw Implanted:Qty: 1 on 10/31/2019 by Albert King MD at [facility] [place] Screw Left: Hip [employer] C1713 02/27/2024 [id number] / / [id number] 6.5mm Low Profile Hex Screw Implanted:Qty: 1 on 10/31/2019 by Albert King MD at [facility] [place] Screw Left: Hip [employer] C1713 12/09/2023 [id number] / / [id number] Shell Acetabular [place] Gription Od52 Mm Hip Sector Sterile Latex Free - [id number] Implanted:Qty: 1 on 05/08/2017 by Benjamín Hanson MD at [facility] [place] Left: Hip [employer] 03/08/2027 [id number] / / [id number] Screw Bone [place] Gription Tf Dome 4 Point Cut Flute L25 Mm Od6.5 Mm Hip Acetabular Cancellous Self Tap Blunt Tip Hexagonal Head Sterile Revision System - [id number] Implanted:Qty: 1 on 05/08/2017 by Benjamín Hanson MD at [facility] [place] Left: Hip [employer] 02/06/2027 1217-25-500 / / [id number] Liner Acetabular [place] Altrx 10 D +4 Mm Od52 Mm Id36 Mm Hip Sterile Latex Free - [id number] Implanted:Qty: 1 on 05/08/2017 by Benjamín Hanson MD at [facility] [place] Left: Hip [employer] 06/06/2020 [id number] / / [id number] Femoral Stem 12/14 Taper Actis Duofix Hip Prosthesis Cementless Implanted:Qty: 1 on 05/08/2017 by Benjamín Hanson MD at [facility] [place] Left: Hip [employer] 01/06/2027 1010-11-070 / / [id number] Head Femoral Articul/Darrel Biolox Delta Titanium +5 Mm 12/14 Taper Od36 Mm Hip Cementless Sterile Latex Free - [id number] Implanted:Qty: 1 on 05/08/2017 by Benjamín Hanson MD at [facility] [place] Left: Hip [employer] 02/06/2022 [id number] / / [id number] Radial Stem Implanted:Qty: 1 on 10/08/2018 by Benjamín Hanson MD at [facility] [place] Right: Elbow [employer] [facility] C1776 03/28/2022 [id number] / / [id number] Radial Head And Lock Screw Implanted:Qty: 1 on 10/08/2018 by Benjamín Hanson MD at [facility] [place] Right: Elbow [employer] [facility] C1776 11/09/2021 [id number] / / [id number] Trident Ii Titanium Clusterhole Acetabular Shell Implanted:Qty: 1 on 10/31/2019 by Albert King MD at [facility] [place] Left: Hip [employer] C1776 09/15/2023 [id number] / / [id number] [employer] [id number] 46mm Modular Dual Mobility Primary Hip F Liner Acetabular Cocr - [id number] Implanted:Qty: 1 on 10/31/2019 by Albert King MD at [facility] [place] Left: Hip [employer] 06/21/2024 [id number] / / [id number] [employer] 1236-2-852 Adm Mobile Bearing Hip Presybeterian 46mm 52mm 28mm 8.9mm Hip - [id number] Implanted:Qty: 1 on 10/31/2019 by Albert King MD at [facility] [place] Left: Hip [employer] 08/22/2023 1236-2-852 / / [id number] [employer] [id number] Articul/Darrel 28mm Skirt Hip +15.5mm 12/14 Standard Taper Head Latex Free - [id number] Implanted:Qty: 1 on 10/31/2019 by Albert Kign MD at [facility] [place] Left: Hip [employer] 09/07/2023 [id number] / / [id number] [employer] [id number] [place] 56mm Sector Hip Shell Acetabular Gription Sterile Latex Free - [id number] Implanted:Qty: 1 on 04/12/2020 by Albert King MD at [facility] [place] Right: Hip [employer] 12/07/2029 [id number] / / [id number] [employer] [id number] [place] 56mm 36mm Hip Neutral Liner Acetabular Altrx Sterile Latex Free - [id number] Implanted:Qty: 1 on 04/12/2020 by Albert King MD at [facility] [place] Right: Hip [employer] 12/07/2024 [id number] / / [id number] [employer] [id number] Actis Collar Hip 7 High Offset Stem Femoral - [id number] Implanted:Qty: 1 on 04/12/2020 by Albert King MD at [facility] [place] Right: Hip [employer] 12/07/2029 [id number] / / [id number] [employer] [id number] Articul/Darrel 36mm Cementless Hip +5mm 12/14 Taper Head Femoral Latex Free - [id number] Implanted:Qty: 1 on 04/12/2020 by Albert King MD at [facility] [place] Right: Hip [employer] 02/06/2025 [id number] / / [id number] Arthrex Inc Ar-1934bcf Suturetak Fiberwire 3mm 14.5mm 2 Dennis Suture Biocomposite - [id number] Implanted:Qty: 1 on 08/09/2020 by Samson Reynolds MD at [facility] [place] Right: Elbow [employer] 12/08/2023 [id number] / / [id number] [employer] Inc [id number] Suturetak Tigerwire 3mm 14.5mm 2 Dennis Suture Fiberwire - [id number] Implanted:Qty: 1 on 08/09/2020 by Samson Reynolds MD at [facility] [place] Right: Elbow [employer] 01/06/2021 [id number] / / [id number] Ar[employer] Inc Ar-1934bcf Suturetak Fiberwire 3mm 14.5mm 2 Dennis Suture Biocomposite - [id number] Implanted:Qty: 1 on 08/09/2020 by Samson Reynolds MD at [facility] [place] Right: Elbow [employer] 12/08/2023 [id number]-[id number] / / [id number] Explanted Type Area Multimedia Coordinator Device Identifier Shelf Expiration Date Model / Serial / Lot Acumed Inc [id number] Slide-Loc 24mm Anatomic Elbow Right Head Radial Sterile - [id number] Implanted:Qty: 1 on 08/21/2018 by Benjamín Hanson MD at [facility] [place] Explanted:Qty: 1 on 10/08/2018 at [facility] [place] [employer] Inc 01/02/2024 [id number] / / [id number] Anatomic Radial Head System Implanted:Qty: 1 on 08/21/2018 by Benjamín Hanson MD at [facility] [place] Explanted:Qty: 1 on 10/08/2018 at [facility] [place] [employer] 05/08/2025 [id number] / / [id number] Insurance MEDICARE [facility] MEDICARE [facility] Advance Directives For more information, please contact: [phone] * Full Code (Latest Code Status on File) Date Activated Date Inactivated Comments 04/12/2020 9:49 AM 04/12/2020 8:12 PM * Full Code Date Activated Date Inactivated Comments 10/31/2019 2:38 PM 11/01/2019 5:59 PM * Full Code Date Activated Date Inactivated Comments 05/08/2017 4:59 PM 05/10/2017 4:40 PM Healthcare Agents on File Name Relationship Healthcare Agent Relationshi p Communication Sruthi Ramos Daughter Health Care Agent Edil Ramos Son Second Alternate Health Care Agent Care Teams Gold Leaf Laborer Relationship Specialty Start Date End Date Frank Bynum MD PCP - General Family Practice 10/30/17 Palmira Ryan, [facility] Physical Therapist Physical Therapy 05/04/17 Albert King MD Surgeon Orthopedic Surgery 04/12/20
== END 2025-03-25 17:08 | disposition home or self-care (01) ==
PROVIDERS: PCP Nurse Practitioner Family; Visit Provider Nurse Practitioner Family
DX: R39.9 Unspecified symptoms and signs involving the genitourinary system (principal)
CPT/HCPCS: 81001; 87086